=== PATIENT | female | born 1950 | race Caucasian/White ===

== ENCOUNTER 2016-07-15 16:49 | Inpatient (IN) | payer OTHER ==
[~2016-07-15] VITALS: Ht 152.4 cm; Wt 84.8 kg
[2016-07-15] MEDS ORDERED: ASPIRIN 81 MG TABLET CHEW ONE (17:24)
[2016-07-15] MEDS ORDERED: CARV3.122 PO (17:27)
[2016-07-15] MEDS ORDERED: ASPIRIN 81 MG TABLET CHEW PO ONE (17:30)
[2016-07-15] MEDS ORDERED: SODIUM CHLORIDE 0.9% 1,000ML IVBOLUS ONE (17:30)
[2016-07-15] MEDS ORDERED: SODIUM CHLORIDE FLUSH 10ML SYR IVF ONE (17:30)
[2016-07-15 17:32] LABS: HEMOGLOBIN 11.1 g/dL (11.7-16.4)
[2016-07-15 17:44] LABS: BLOOD UREA NITROGEN 39 mg/dL (7-18)
[2016-07-15 17:47] LABS: IS PT STATUS REG ER OR PRE ER? YES
[2016-07-15] MEDS ORDERED: FERR325T20 PO (18:47)
[2016-07-15] MEDS ORDERED: CARV6.2512 PO (18:47)
[2016-07-15] MEDS ORDERED: ROSU40TA PO (18:47)
[2016-07-15] MEDS ORDERED: LISI-167 PO (18:47)
[2016-07-15] MEDS ORDERED: TIOT18CA INH (18:47)
[2016-07-15] MEDS ORDERED: TRAM50TA2 PO (18:47)
[2016-07-15] MEDS ORDERED: MELO-184 PO (18:47)
[2016-07-15] MEDS ORDERED: FURO-92 PO (18:47)
[2016-07-15] MEDS ORDERED: BUDE10.2 INH (18:47)
[2016-07-15] MEDS ORDERED: POTA20PA8 PO (18:47)
[2016-07-15] MEDS ORDERED: GABA300C10 PO (18:47)
[2016-07-15] MEDS ORDERED: NS + 20MEQ KCL 1,000 ML IV SCH (20:01)
[2016-07-15] MEDS ORDERED: POLYETHYLENE GLYCOL 17 GM PACKET PO PRN (20:30)
[2016-07-15] MEDS ORDERED: LABETALOL 5MG/ML, 20ML IV PRN (20:30)
[2016-07-15] MEDS ORDERED: BISACODYL 10 MG SUPP PR PRN (20:30)
[2016-07-15] MEDS ORDERED: ACETAMINOPHEN 325 MG TABLET PO PRN (20:30)
[2016-07-15] MEDS ORDERED: ONDANSETRON ODT 4 MG PO PRN (20:30)
[2016-07-15] MEDS: TEMPLATE NON-FORMULARY MED. (Budesonide/Formoterol Fumarate (Symbicort 160-4.5 Mcg Inhaler INH SCH (21:00)
[2016-07-15] MEDS ORDERED: TEMPLATE NON-FORMULARY MED. (Rosuvastatin Calcium** (Crestor**) 40 MG) PO SCH (21:00)
[2016-07-15] MEDS: INSULIN ASPART 100 UNITS/ML, PEN SQ-INSULIN SCH (21:00)
[2016-07-15 21:36] VITALS: BP 129/74
[2016-07-15] MEDS: HEPARIN 5,000 UNITS/ML, 1ML SQ SCH ×2 (22:14→22:36)
[2016-07-15] MEDS: CARVEDILOL 6.25 MG TABLET PO SCH (22:15)
[2016-07-15] MEDS: GABAPENTIN 300 MG CAPSULE PO SCH (22:16)
[2016-07-15] MEDS: TRAZODONE 50MG TABLET PO PRN (22:22)
[2016-07-15 23:33] LABS: IS PT STATUS REG ER OR PRE ER? NO
[2016-07-16 01:35] VITALS: BP 157/89
[2016-07-16] MEDS: HEPARIN 5,000 UNITS/ML, 1ML SQ SCH ×3 (04:39→22:12)
[2016-07-16 05:54] LABS: HEMOGLOBIN 9.7 g/dL (11.7-16.4)
[2016-07-16 06:05] LABS: BLOOD UREA NITROGEN 30 mg/dL (7-18)
[2016-07-16 06:12] LABS: ASPARTATE AMINO TRANSFERASE 9 U/L (15-37)
[2016-07-16 06:13] LABS: IS PT STATUS REG ER OR PRE ER? NO
[2016-07-16] MEDS: INSULIN ASPART 100 UNITS/ML, PEN SQ-INSULIN SCH ×4 (07:00→21:00)
[2016-07-16 07:33] VITALS: BP 119/67
[2016-07-16] MEDS: LISINOPRIL 10 MG TABLET PO SCH (08:14)
[2016-07-16] MEDS: CARVEDILOL 6.25 MG TABLET PO SCH ×2 (08:14→22:12)
[2016-07-16] MEDS: GABAPENTIN 300 MG CAPSULE PO SCH ×3 (08:14→22:12)
[2016-07-16] MEDS: MELOXICAM 15 MG TABLET PO SCH (08:14)
[2016-07-16] MEDS: FERROUS SULFATE 325 MG TABLET PO SCH ×2 (08:15→17:26)
[2016-07-16] MEDS: TEMPLATE NON-FORMULARY MED. (Tiotropium Bromide** (Spiriva**) 18 MCG) INH SCH (09:00)
[2016-07-16] MEDS: TEMPLATE NON-FORMULARY MED. (Budesonide/Formoterol Fumarate (Symbicort 160-4.5 Mcg Inhaler INH SCH ×2 (09:00→21:00)
[2016-07-16 12:46] VITALS: BP 143/81
[2016-07-16] MEDS ORDERED: POTASSIUM CHLORIDE 20 MEQ TAB.ER.PRT PO ONE (17:00)
[2016-07-16 19:15] VITALS: BP 114/54
[2016-07-16] MEDS ORDERED: NS + 20MEQ KCL 1,000 ML IV SCH (20:01)
[2016-07-16] MEDS: ATORVASTATIN 80 MG TABLET PO SCH (22:12)
[2016-07-16] MEDS: TRAZODONE 50MG TABLET PO PRN (23:00)
[2016-07-17] MEDS ORDERED: SODIUM CHLORIDE 0.9% 1,000 ML IV SCH (00:01)
[2016-07-17 01:37] VITALS: BP 108/58
[2016-07-17] MEDS: HEPARIN 5,000 UNITS/ML, 1ML SQ SCH ×3 (05:51→21:26)
[2016-07-17] MEDS: INSULIN ASPART 100 UNITS/ML, PEN SQ-INSULIN SCH ×5 (07:37→21:00)
[2016-07-17] MEDS: FERROUS SULFATE 325 MG TABLET PO SCH ×3 (08:00→16:36)
[2016-07-17] MEDS ORDERED: D5%-0.45% NACL 1,000 ML IV SCH (08:00)
[2016-07-17 08:20] VITALS: BP 115/70
[2016-07-17] MEDS: GABAPENTIN 300 MG CAPSULE PO SCH ×5 (08:26→21:26)
[2016-07-17] MEDS: MELOXICAM 15 MG TABLET PO SCH ×2 (08:26→08:39)
[2016-07-17] MEDS: CARVEDILOL 6.25 MG TABLET PO SCH ×3 (08:32→21:26)
[2016-07-17] MEDS: LISINOPRIL 10 MG TABLET PO SCH (08:32)
[2016-07-17] MEDS: TEMPLATE NON-FORMULARY MED. (Tiotropium Bromide** (Spiriva**) 18 MCG) INH SCH (08:33)
[2016-07-17] MEDS: TEMPLATE NON-FORMULARY MED. (Budesonide/Formoterol Fumarate (Symbicort 160-4.5 Mcg Inhaler INH SCH ×2 (08:33→21:00)
[2016-07-17] MEDS ORDERED: POTASSIUM CHLORIDE 20 MEQ TAB.ER.PRT PO ONE (09:30)
[2016-07-17 10:36] LABS: BLOOD UREA NITROGEN 22 mg/dL (7-18)
[2016-07-17 10:37] LABS: TOTAL IRON BINDING CAPACITY 333 mcg/dL (250-450)
[2016-07-17 13:45] VITALS: BP 102/62
[2016-07-17] MEDS ORDERED: FENTANYL PF 100 MCG/2ML ONE (16:08)
[2016-07-17] MEDS ORDERED: NITROGLYCERIN 5 MG/ML, 10ML ONE (16:08)
[2016-07-17] MEDS ORDERED: MIDAZOLAM 1 MG/ML, 5ML ONE (16:08)
[2016-07-17] MEDS ORDERED: VERAPAMIL 2.5 MG/ML, 2ML ONE (16:08)
[2016-07-17] MEDS ORDERED: HEPARIN 1,000 UNITS/ML, 10ML ONE (16:09)
[2016-07-17] MEDS ORDERED: TICAGRELOR 90 MG TABLET ONE (16:09)
[2016-07-17] MEDS ORDERED: BIVALIRUDIN 250 MG ONE (16:09)
[2016-07-17] MEDS ORDERED: LIDOCAINE 2%, 20ML ONE (16:10)
[2016-07-17] MEDS ORDERED: DIPHENHYDRAMINE 50 MG/ML, 1ML ONE (16:41)
[2016-07-17] MEDS: SODIUM CHLORIDE 0.9% 1,000 ML IV SCH ×2 (16:42→23:09)
[2016-07-17] MEDS ORDERED: ACETAMINOPHEN 325 MG TABLET PO PRN (17:00)
[2016-07-17 20:30] VITALS: BP 124/80
[2016-07-17] MEDS: ATORVASTATIN 80 MG TABLET PO SCH (21:26)
[2016-07-17] MEDS: TRAZODONE 50MG TABLET PO PRN (23:09)
[2016-07-18 01:05] VITALS: BP 94/57
[2016-07-18 05:01] LABS: HEMOGLOBIN 8.6 g/dL (11.7-16.4)
[2016-07-18] MEDS: HEPARIN 5,000 UNITS/ML, 1ML SQ SCH ×3 (06:01→21:32)
[2016-07-18 06:22] VITALS: BP 132/79
[2016-07-18] MEDS: INSULIN ASPART 100 UNITS/ML, PEN SQ-INSULIN SCH ×4 (07:00→21:00)
[2016-07-18] MEDS: SODIUM CHLORIDE 0.9% 1,000 ML IV SCH ×3 (08:42→19:41)
[2016-07-18] MEDS: MELOXICAM 15 MG TABLET PO SCH (08:48)
[2016-07-18] MEDS: FERROUS SULFATE 325 MG TABLET PO SCH ×2 (08:49→16:45)
[2016-07-18] MEDS: GABAPENTIN 300 MG CAPSULE PO SCH ×3 (08:49→21:32)
[2016-07-18] MEDS: TEMPLATE NON-FORMULARY MED. (Budesonide/Formoterol Fumarate (Symbicort 160-4.5 Mcg Inhaler INH SCH ×2 (08:50→21:00)
[2016-07-18] MEDS: CARVEDILOL 6.25 MG TABLET PO SCH ×2 (08:50→21:33)
[2016-07-18] MEDS: TEMPLATE NON-FORMULARY MED. (Tiotropium Bromide** (Spiriva**) 18 MCG) INH SCH (08:51)
[2016-07-18 09:04] VITALS: BP 108/63
[2016-07-18] MEDS: LISINOPRIL 10 MG TABLET PO SCH (09:04)
[2016-07-18 13:02] VITALS: BP 132/76
[2016-07-18] MEDS: DOCUSATE 100 MG CAPSULE PO PRN (16:45)
[2016-07-18 19:26] VITALS: BP 135/72
[2016-07-18] MEDS: ATORVASTATIN 80 MG TABLET PO SCH (21:33)
[2016-07-18] MEDS: TRAZODONE 50MG TABLET PO PRN (23:14)
[2016-07-19 02:52] VITALS: BP 124/80
[2016-07-19 05:28] LABS: HEMOGLOBIN 9.3 g/dL (11.7-16.4)
[2016-07-19] MEDS: HEPARIN 5,000 UNITS/ML, 1ML SQ SCH ×3 (06:42→22:49)
[2016-07-19] MEDS: INSULIN ASPART 100 UNITS/ML, PEN SQ-INSULIN SCH ×4 (07:00→21:00)
[2016-07-19] MEDS: SODIUM CHLORIDE 0.9% 1,000 ML IV SCH ×2 (08:20→16:42)
[2016-07-19 08:30] VITALS: BP 125/76
[2016-07-19] MEDS: GABAPENTIN 300 MG CAPSULE PO SCH ×3 (08:33→22:49)
[2016-07-19] MEDS: MELOXICAM 15 MG TABLET PO SCH (08:33)
[2016-07-19] MEDS: CARVEDILOL 6.25 MG TABLET PO SCH ×2 (08:33→22:49)
[2016-07-19] MEDS: LISINOPRIL 10 MG TABLET PO SCH (08:36)
[2016-07-19] MEDS: FERROUS SULFATE 325 MG TABLET PO SCH ×2 (08:36→18:08)
[2016-07-19] MEDS: TEMPLATE NON-FORMULARY MED. (Tiotropium Bromide** (Spiriva**) 18 MCG) INH SCH (08:37)
[2016-07-19] MEDS: TEMPLATE NON-FORMULARY MED. (Budesonide/Formoterol Fumarate (Symbicort 160-4.5 Mcg Inhaler INH SCH ×2 (08:38→21:00)
[2016-07-19] MEDS: DOCUSATE 100 MG CAPSULE PO PRN (08:43)
[2016-07-19 13:42] VITALS: BP 138/70
[2016-07-19 20:30] VITALS: BP 126/60
[2016-07-19] MEDS: ATORVASTATIN 80 MG TABLET PO SCH (22:49)
[2016-07-20] MEDS: SODIUM CHLORIDE 0.9% 1,000 ML IV SCH ×4 (00:42→21:01)
[2016-07-20 00:44] VITALS: BP 113/53
[2016-07-20 06:55] VITALS: BP 142/69
[2016-07-20] MEDS: HEPARIN 5,000 UNITS/ML, 1ML SQ SCH ×3 (07:15→21:00)
[2016-07-20] MEDS: INSULIN ASPART 100 UNITS/ML, PEN SQ-INSULIN SCH ×4 (08:19→21:00)
[2016-07-20] MEDS: FERROUS SULFATE 325 MG TABLET PO SCH ×2 (08:25→17:19)
[2016-07-20] MEDS: GABAPENTIN 300 MG CAPSULE PO SCH ×3 (08:25→20:57)
[2016-07-20] MEDS: CARVEDILOL 6.25 MG TABLET PO SCH ×2 (08:25→20:57)
[2016-07-20] MEDS: MELOXICAM 15 MG TABLET PO SCH (08:25)
[2016-07-20] MEDS: LISINOPRIL 10 MG TABLET PO SCH (08:25)
[2016-07-20] MEDS: TEMPLATE NON-FORMULARY MED. (Tiotropium Bromide** (Spiriva**) 18 MCG) INH SCH (08:28)
[2016-07-20] MEDS: TEMPLATE NON-FORMULARY MED. (Budesonide/Formoterol Fumarate (Symbicort 160-4.5 Mcg Inhaler INH SCH ×2 (08:28→20:56)
[2016-07-20 10:45] LABS: OCCBLD OBC PASS
[2016-07-20 14:51] VITALS: BP 119/56
[2016-07-20 19:07] VITALS: BP 127/60
[2016-07-20] MEDS: ATORVASTATIN 80 MG TABLET PO SCH (20:57)
[2016-07-21 02:50] VITALS: BP 146/73
[2016-07-21] MEDS: HEPARIN 5,000 UNITS/ML, 1ML SQ SCH ×3 (06:08→22:30)
[2016-07-21 06:51] VITALS: BP 125/56
[2016-07-21] MEDS: INSULIN ASPART 100 UNITS/ML, PEN SQ-INSULIN SCH ×4 (07:00→21:00)
[2016-07-21] MEDS: FERROUS SULFATE 325 MG TABLET PO SCH ×2 (08:13→17:37)
[2016-07-21] MEDS: LISINOPRIL 10 MG TABLET PO SCH (08:14)
[2016-07-21] MEDS: GABAPENTIN 300 MG CAPSULE PO SCH ×3 (08:15→20:28)
[2016-07-21] MEDS: CARVEDILOL 6.25 MG TABLET PO SCH ×2 (08:15→20:25)
[2016-07-21] MEDS: MELOXICAM 15 MG TABLET PO SCH (08:16)
[2016-07-21] MEDS: TEMPLATE NON-FORMULARY MED. (Tiotropium Bromide** (Spiriva**) 18 MCG) INH SCH (08:17)
[2016-07-21] MEDS: TEMPLATE NON-FORMULARY MED. (Budesonide/Formoterol Fumarate (Symbicort 160-4.5 Mcg Inhaler INH SCH ×2 (08:18→20:29)
[2016-07-21] MEDS: SODIUM CHLORIDE 0.9% 1,000 ML IV SCH ×2 (08:20→16:42)
[2016-07-21] MEDS ORDERED: INSULIN ASPART 100 UNITS/ML, PEN SQ-INSULIN SCH (10:00)
[2016-07-21] MEDS: MUPIROCIN OINT 2%, 22GM TP SCH (10:00)
[2016-07-21] MEDS ORDERED: CHLORHEXIDINE MOUTHWASH 15 ML UDC MM PRN (10:00)
[2016-07-21 10:25] LABS: HEMOGLOBIN 10.2 g/dL (11.7-16.4)
[2016-07-21 10:32] LABS: ASPARTATE AMINO TRANSFERASE 11 U/L (15-37); BLOOD UREA NITROGEN 16 mg/dL (7-18)
[2016-07-21 14:58] VITALS: BP 121/60
[2016-07-21] MEDS: ATORVASTATIN 80 MG TABLET PO SCH (20:28)
[2016-07-21] MEDS: SODIUM CHLORIDE FLUSH 10ML SYR IVF SCH (20:29)
[2016-07-21 20:43] VITALS: BP 138/73
[2016-07-22] MEDS: SODIUM CHLORIDE 0.9% 1,000 ML IV SCH ×2 (00:42→08:42)
[2016-07-22] MEDS: MUPIROCIN OINT 2%, 22GM TP SCH ×3 (01:38→21:00)
[2016-07-22 02:18] VITALS: BP 146/72
[2016-07-22] MEDS: HEPARIN 5,000 UNITS/ML, 1ML SQ SCH (06:30)
[2016-07-22] MEDS: INSULIN ASPART 100 UNITS/ML, PEN SQ-INSULIN SCH ×2 (07:00→11:00)
[2016-07-22] MEDS ORDERED: CEFUROXIME 1.5 GM in SODIUM CHLORIDE 0.9% 50 ML IVPB PRN ×2 (07:30→12:30)
[2016-07-22] MEDS ORDERED: VANCOMYCIN 1,300 MG in SODIUM CHLORIDE 0.9% 250 ML IVPB PRN (07:30)
[2016-07-22 07:47] VITALS: BP 133/74
[2016-07-22] MEDS: SODIUM CHLORIDE FLUSH 10ML SYR IVF SCH ×3 (09:00→21:32)
[2016-07-22] MEDS: TEMPLATE NON-FORMULARY MED. (Tiotropium Bromide** (Spiriva**) 18 MCG) INH SCH (09:00)
[2016-07-22] MEDS: TEMPLATE NON-FORMULARY MED. (Budesonide/Formoterol Fumarate (Symbicort 160-4.5 Mcg Inhaler INH SCH ×2 (09:00→21:00)
[2016-07-22] MEDS: CARVEDILOL 6.25 MG TABLET PO SCH (09:17)
[2016-07-22] MEDS: MELOXICAM 15 MG TABLET PO SCH (09:17)
[2016-07-22] MEDS: FERROUS SULFATE 325 MG TABLET PO SCH ×2 (09:17→17:00)
[2016-07-22] MEDS: LISINOPRIL 10 MG TABLET PO SCH (09:17)
[2016-07-22] MEDS: GABAPENTIN 300 MG CAPSULE PO SCH ×3 (09:18→21:00)
[2016-07-22 11:00] VITALS: BP_SYST 150; BP_SYST 151; BP_DIAS 72; BP_DIAS 74
[2016-07-22] MEDS ORDERED: HEPARIN 1,000 UNITS/ML, 10ML IV ONE (12:30)
[2016-07-22] MEDS ORDERED: PAPAVERINE 30 MG/ML, 2ML IVPush ONE (12:30)
[2016-07-22] MEDS ORDERED: EPINEPHRINE 2 MG in SODIUM CHLORIDE 0.9% 248 ML IV SCH (12:30)
[2016-07-22] MEDS ORDERED: REGULAR INSULIN 62.5 UNITS in SODIUM CHLORIDE 0.9% 249.375 ML IV PRN ×2 (12:30→16:29)
[2016-07-22] MEDS ORDERED: POTASSIUM CHLORIDE 80 MEQ, SODIUM BICARBONATE 8.4% 10 MEQ, MAGNESIUM SULFATE 0.5 GM, LI... IV PRN (12:30)
[2016-07-22] MEDS ORDERED: ALBUMIN HUMAN 5% 500 ML IV ONE (12:30)
[2016-07-22] MEDS ORDERED: PHENYLEPHRINE 10 MG in SODIUM CHLORIDE 0.9% 249 ML IV PRN ×2 (12:30→16:29)
[2016-07-22] MEDS ORDERED: VANCOMYCIN 1,300 MG in SODIUM CHLORIDE 0.9% 250 ML IV PRN (12:30)
[2016-07-22] MEDS ORDERED: MANNITOL PMX 20% 500 ML IVPB PRN (12:30)
[2016-07-22] MEDS ORDERED: DEXMEDETOMIDINE 200 MCG in SODIUM CHLORIDE 0.9% 48 ML IV SCH (12:30)
[2016-07-22] MEDS ORDERED: MIDAZOLAM 10MG/2 ML ONE (12:36)
[2016-07-22] MEDS ORDERED: FENTANYL PF 1000 MCG/20ML ONE (12:36)
[2016-07-22] MEDS ORDERED: ROCURONIUM 10 MG/ML ONE (13:02)
[2016-07-22] MEDS ORDERED: PROPOFOL 10 MG/ML, 50ML ONE (13:02)
[2016-07-22] MEDS ORDERED: AMIODARONE 50 MG/ML, 3ML ONE (16:09)
[2016-07-22] MEDS ORDERED: PAPAVERINE 30 MG/ML, 2ML ONE (16:10)
[2016-07-22] MEDS ORDERED: AMINOCAPROIC ACID 250 MG/ML, 20ML ONE ×2 (16:10)
[2016-07-22] MEDS ORDERED: PROTAMINE SULFATE 10 MG/ML, 25ML ONE (16:10)
[2016-07-22] MEDS ORDERED: HEPARIN 1,000 UNITS/ML, 30ML ONE ×2 (16:11→16:52)
[2016-07-22] MEDS ORDERED: CALCIUM CHLORIDE 10%, 10ML SYR ONE ×2 (16:11→16:14)
[2016-07-22] MEDS ORDERED: VASOPRESSIN 20 UNIT/ML, 1ML ONE (16:15)
[2016-07-22] MEDS ORDERED: CLEVIDIPINE 50 ML IV PRN (16:29)
[2016-07-22] MEDS ORDERED: SODIUM CHLORIDE 0.9% 1,000 ML IV PRN (16:29)
[2016-07-22] MEDS ORDERED: NITROGLYCERIN/D5W PMX 250 ML IV PRN (16:29)
[2016-07-22] MEDS ORDERED: SODIUM CHLORIDE 0.9% 1,000 ML IV ONE (16:29)
[2016-07-22] MEDS ORDERED: DEXTROSE 50%, 50ML SYRINGE IVPush PRN (16:30)
[2016-07-22] MEDS ORDERED: MEPERIDINE/PF 25MG/0.5ML IVPush PRN (16:30)
[2016-07-22] MEDS ORDERED: BISACODYL 5 MG EC TABLET PO PRN (16:30)
[2016-07-22] MEDS ORDERED: LACTATED RINGERS 500 ML IVBOLUS PRN (16:30)
[2016-07-22] MEDS ORDERED: SODIUM BICARB 8.4%, 50ML SYRINGE IV PRN (16:30)
[2016-07-22] MEDS ORDERED: EPINEPHRINE 2 MG in SODIUM CHLORIDE 0.9% 248 ML IV PRN (16:30)
[2016-07-22] MEDS: KSCALE TO 4.5 IV SCH ×2 (16:30→22:30)
[2016-07-22] MEDS ORDERED: ACETAMINOPHEN 650 MG SUPP PR PRN (16:30)
[2016-07-22] MEDS ORDERED: PROCHLORPERAZINE 5 MG/ML, 2ML IVPush PRN (16:30)
[2016-07-22] MEDS ORDERED: MIDAZOLAM 1 MG/ML, 5ML IVPush PRN (16:30)
[2016-07-22] MEDS ORDERED: INSULIN ASPART 100 UNITS/ML, PEN SQ-INSULIN PRN (16:30)
[2016-07-22] MEDS ORDERED: GLUCAGON 1 MG IM PRN (16:30)
[2016-07-22] MEDS ORDERED: ACETAMINOPHEN 325 MG TABLET PO PRN (16:30)
[2016-07-22] MEDS ORDERED: ONDANSETRON 2MG/ML, 2ML IVPush PRN (16:30)
[2016-07-22] MEDS ORDERED: DEXTROSE 4 GM TAB.CHEW PO PRN (16:30)
[2016-07-22] MEDS ORDERED: BISACODYL 10 MG SUPP PR PRN (16:30)
[2016-07-22] MEDS ORDERED: ALBUMIN HUMAN 25% 50 ML ONE (16:50)
[2016-07-22] MEDS ORDERED: SODIUM BICARBONATE 1 MEQ/ML, 50ML VIAL ONE (16:51)
[2016-07-22] MEDS ORDERED: LIDOCAINE 2% 100MG/5ML SYRINGE ONE (16:51)
[2016-07-22 16:56] LABS: ABG COLLECTION SITE ARTERIAL LINE
[2016-07-22] MEDS ORDERED: DOBUTAMINE 250 MG in SODIUM CHLORIDE 0.9% 230 ML IV PRN (17:00)
[2016-07-22 17:07] LABS: HEMOGLOBIN 7.7 g/dL (11.7-16.4)
[2016-07-22] MEDS: MAGNESIUM SULFATE 1 GM in SODIUM CHLORIDE 0.9% 50 ML IVPB SCH (17:25)
[2016-07-22] MEDS: morphine SULFATE 10 MG/ML, 1ML IVPush PRN ×4 (19:20→23:13)
[2016-07-22] MEDS ORDERED: DEXMEDETOMIDINE 200 MCG in SODIUM CHLORIDE 0.9% 48 ML IV PRN (19:30)
[2016-07-22 20:58] VITALS: BP 128/61
[2016-07-22] MEDS: DOCUSATE 100 MG CAPSULE PO SCH (21:00)
[2016-07-22] MEDS: ATORVASTATIN 80 MG TABLET PO SCH (21:00)
[2016-07-22] MEDS: MUPIROCIN OINT 2%, 22GM NAS SCH (21:32)
[2016-07-22 22:17] LABS: HEMOGLOBIN 9.9 g/dL (11.7-16.4)
[2016-07-22] MEDS: CEFUROXIME 1.5 GM in SODIUM CHLORIDE 0.9% 50 ML IVPB SCH (23:07)
[2016-07-22] MEDS ORDERED: IPRATROPIUM 0.5 MG/2.5 ML INHA NPPB PRN (23:30)
[2016-07-22] MEDS ORDERED: POTASSIUM CHLORIDE PMX 100 ML IV ONE (23:30)
[2016-07-22] MEDS: OXYcodone IR 5MG TABLET PO PRN (23:33)
[2016-07-22] MEDS: VANCOMYCIN 1,200 MG in SODIUM CHLORIDE 0.9% 250 ML IVPB SCH (23:41)
[2016-07-23] MEDS: HYDROcodone/APAP 10/325 MG TABLET PO PRN ×4 (00:39→18:19)
[2016-07-23 03:59] LABS: ABG COLLECTION SITE ARTERIAL LINE
[2016-07-23 04:03] LABS: HEMOGLOBIN 9.6 g/dL (11.7-16.4)
[2016-07-23 04:11] LABS: BLOOD UREA NITROGEN 14 mg/dL (7-18)
[2016-07-23] MEDS: OXYcodone IR 5MG TABLET PO PRN ×4 (04:21→20:26)
[2016-07-23] MEDS: KSCALE TO 4.5 IV SCH (04:30)
[2016-07-23] MEDS: INSULIN ASPART 100 UNITS/ML, PEN SQ-INSULIN SCH ×5 (06:00→20:55)
[2016-07-23] MEDS ORDERED: INSULIN ASPART 100 UNITS/ML, PEN SQ-INSULIN SCH (06:00)
[2016-07-23] MEDS ORDERED: MAGNESIUM HYDROXIDE 8%, 30ML UDC PO PRN (08:00)
[2016-07-23] MEDS: FUROSEMIDE 20 MG/2 ML IV SCH ×2 (08:49→16:55)
[2016-07-23] MEDS: PANTOPRAZOLE 40 MG IV IVPush SCH (08:50)
[2016-07-23] MEDS: MELOXICAM 15 MG TABLET PO SCH (08:50)
[2016-07-23] MEDS: ASPIRIN 81 MG TABLET EC PO SCH (08:50)
[2016-07-23] MEDS: FERROUS SULFATE 325 MG TABLET PO SCH ×2 (08:50→16:55)
[2016-07-23] MEDS: DOCUSATE 100 MG CAPSULE PO SCH ×2 (08:50→20:26)
[2016-07-23] MEDS: METOPROLOL TARTRATE 25 MG TABLET PO/NG SCH ×2 (08:50→20:26)
[2016-07-23] MEDS: MUPIROCIN OINT 2%, 22GM NAS SCH ×2 (08:50→20:54)
[2016-07-23] MEDS: GABAPENTIN 300 MG CAPSULE PO SCH ×3 (08:50→20:26)
[2016-07-23] MEDS: POTASSIUM CHLORIDE 10 MEQ TABLET.ER PO SCH ×2 (08:54→16:55)
[2016-07-23] MEDS: MUPIROCIN OINT 2%, 22GM TP SCH ×2 (08:59→20:25)
[2016-07-23] MEDS: SODIUM CHLORIDE FLUSH 10ML SYR IVF SCH ×5 (09:00→20:54)
[2016-07-23] MEDS: TEMPLATE NON-FORMULARY MED. (Budesonide/Formoterol Fumarate (Symbicort 160-4.5 Mcg Inhaler INH SCH ×2 (09:00→20:54)
[2016-07-23] MEDS: TEMPLATE NON-FORMULARY MED. (Tiotropium Bromide** (Spiriva**) 18 MCG) INH SCH (09:00)
[2016-07-23 10:20] LABS: HEMOGLOBIN 10.3 g/dL (11.7-16.4)
[2016-07-23] MEDS: CEFUROXIME 1.5 GM in SODIUM CHLORIDE 0.9% 50 ML IVPB SCH (11:10)
[2016-07-23] MEDS: IPRATROPIUM 0.5 MG/2.5 ML INHA NPPB PRN (11:16)
[2016-07-23] MEDS: VANCOMYCIN 1,200 MG in SODIUM CHLORIDE 0.9% 250 ML IVPB SCH (12:26)
[2016-07-23] MEDS: CHLORHEXIDINE MOUTHWASH 15 ML UDC MM SCH (16:55)
[2016-07-23] MEDS: MAGNESIUM SULFATE 1 GM in SODIUM CHLORIDE 0.9% 50 ML IVPB SCH (18:19)
[2016-07-23] MEDS: ATORVASTATIN 80 MG TABLET PO SCH (20:26)
[2016-07-23 20:30] VITALS: BP 101/66
[2016-07-24] MEDS: OXYcodone IR 5MG TABLET PO PRN ×6 (00:57→21:52)
[2016-07-24 02:25] VITALS: BP 100/65
[2016-07-24 05:10] LABS: HEMOGLOBIN 9.7 g/dL (11.7-16.4)
[2016-07-24 05:17] LABS: BLOOD UREA NITROGEN 21 mg/dL (7-18)
[2016-07-24 06:54] VITALS: BP 113/72
[2016-07-24] MEDS: INSULIN ASPART 100 UNITS/ML, PEN SQ-INSULIN SCH ×4 (07:00→21:10)
[2016-07-24] MEDS ORDERED: ENOXAPARIN 40 MG/0.4 ML ONE (07:58)
[2016-07-24] MEDS: PANTOPRAZOLE 40 MG IV IVPush SCH (08:02)
[2016-07-24] MEDS: POTASSIUM CHLORIDE 10 MEQ TABLET.ER PO SCH ×2 (08:02→17:32)
[2016-07-24] MEDS: DOCUSATE 100 MG CAPSULE PO SCH ×2 (08:02→21:04)
[2016-07-24] MEDS: ASPIRIN 81 MG TABLET EC PO SCH (08:02)
[2016-07-24] MEDS: FERROUS SULFATE 325 MG TABLET PO SCH ×2 (08:02→17:32)
[2016-07-24] MEDS: CHLORHEXIDINE MOUTHWASH 15 ML UDC MM SCH ×2 (08:03→21:05)
[2016-07-24] MEDS: MELOXICAM 15 MG TABLET PO SCH (08:03)
[2016-07-24] MEDS: METOPROLOL TARTRATE 25 MG TABLET PO/NG SCH ×2 (08:03→21:04)
[2016-07-24] MEDS: SODIUM CHLORIDE FLUSH 10ML SYR IVF SCH ×6 (08:03→21:00)
[2016-07-24] MEDS: ENOXAPARIN 40 MG/0.4 ML SQ SCH (08:03)
[2016-07-24] MEDS: FUROSEMIDE 20 MG/2 ML IV SCH ×2 (08:03→17:32)
[2016-07-24] MEDS: GABAPENTIN 300 MG CAPSULE PO SCH ×3 (08:03→21:04)
[2016-07-24] MEDS: MUPIROCIN OINT 2%, 22GM TP SCH ×2 (08:05→21:00)
[2016-07-24] MEDS: MUPIROCIN OINT 2%, 22GM NAS SCH ×2 (08:06→21:05)
[2016-07-24] MEDS: TEMPLATE NON-FORMULARY MED. (Budesonide/Formoterol Fumarate (Symbicort 160-4.5 Mcg Inhaler INH SCH ×2 (08:12→21:00)
[2016-07-24] MEDS: TEMPLATE NON-FORMULARY MED. (Tiotropium Bromide** (Spiriva**) 18 MCG) INH SCH (08:13)
[2016-07-24] MEDS: HYDROcodone/APAP 10/325 MG TABLET PO PRN (12:56)
[2016-07-24 12:59] VITALS: BP 89/56
[2016-07-24] MEDS: MAGNESIUM SULFATE 1 GM in SODIUM CHLORIDE 0.9% 50 ML IVPB SCH (17:32)
[2016-07-24 19:49] VITALS: BP 101/65
[2016-07-24] MEDS: ATORVASTATIN 80 MG TABLET PO SCH (21:04)
[2016-07-25 01:34] VITALS: BP 120/77
[2016-07-25] MEDS: OXYcodone IR 5MG TABLET PO PRN ×3 (01:38→08:04)
[2016-07-25 05:04] LABS: HEMOGLOBIN 8.6 g/dL (11.7-16.4)
[2016-07-25 05:16] LABS: BLOOD UREA NITROGEN 28 mg/dL (7-18)
[2016-07-25] MEDS: INSULIN ASPART 100 UNITS/ML, PEN SQ-INSULIN SCH ×4 (07:00→22:17)
[2016-07-25 07:13] VITALS: BP 101/68
[2016-07-25] MEDS: FUROSEMIDE 20 MG/2 ML IV SCH ×2 (08:03→16:21)
[2016-07-25] MEDS: CHLORHEXIDINE MOUTHWASH 15 ML UDC MM SCH (08:03)
[2016-07-25] MEDS: MUPIROCIN OINT 2%, 22GM NAS SCH ×2 (08:03→22:23)
[2016-07-25] MEDS: ENOXAPARIN 40 MG/0.4 ML SQ SCH (08:03)
[2016-07-25] MEDS: CLOPIDOGREL 75 MG TABLET PO SCH (08:04)
[2016-07-25] MEDS: POTASSIUM CHLORIDE 10 MEQ TABLET.ER PO SCH ×2 (08:04→16:21)
[2016-07-25] MEDS: METOPROLOL TARTRATE 25 MG TABLET PO/NG SCH ×2 (08:04→22:15)
[2016-07-25] MEDS: ASPIRIN 81 MG TABLET EC PO SCH (08:04)
[2016-07-25] MEDS: DOCUSATE 100 MG CAPSULE PO SCH ×2 (08:04→22:23)
[2016-07-25] MEDS: FERROUS SULFATE 325 MG TABLET PO SCH ×2 (08:04→16:21)
[2016-07-25] MEDS: MELOXICAM 15 MG TABLET PO SCH (08:04)
[2016-07-25] MEDS: GABAPENTIN 300 MG CAPSULE PO SCH ×3 (08:04→22:23)
[2016-07-25] MEDS: TEMPLATE NON-FORMULARY MED. (Tiotropium Bromide** (Spiriva**) 18 MCG) INH SCH (08:05)
[2016-07-25] MEDS: PANTOPRAZOLE 40 MG IV IVPush SCH (08:05)
[2016-07-25] MEDS: SODIUM CHLORIDE FLUSH 10ML SYR IVF SCH ×6 (08:05→22:23)
[2016-07-25] MEDS: TEMPLATE NON-FORMULARY MED. (Budesonide/Formoterol Fumarate (Symbicort 160-4.5 Mcg Inhaler INH SCH ×2 (08:05→22:22)
[2016-07-25] MEDS: MUPIROCIN OINT 2%, 22GM TP SCH ×2 (08:06→22:22)
[2016-07-25] MEDS: IPRATROPIUM 0.5 MG/2.5 ML INHA NPPB PRN ×2 (11:51→16:22)
[2016-07-25 13:10] VITALS: BP 89/56
[2016-07-25] MEDS: HYDROcodone/APAP 10/325 MG TABLET PO PRN ×3 (13:19→22:24)
[2016-07-25 18:57] VITALS: BP 106/70
[2016-07-25 22:15] VITALS: BP 95/65
[2016-07-25] MEDS: ATORVASTATIN 80 MG TABLET PO SCH (22:23)
[2016-07-26 02:34] VITALS: BP 109/74
[2016-07-26] MEDS: HYDROcodone/APAP 10/325 MG TABLET PO PRN ×4 (03:52→17:58)
[2016-07-26 04:10] LABS: BLOOD UREA NITROGEN 24 mg/dL (7-18)
[2016-07-26] MEDS: INSULIN ASPART 100 UNITS/ML, PEN SQ-INSULIN SCH ×4 (07:00→20:46)
[2016-07-26 07:52] VITALS: BP 101/64
[2016-07-26] MEDS ORDERED: METO25TA35 PO/NG (08:34)
[2016-07-26] MEDS ORDERED: CLOP75TA PO (08:34)
[2016-07-26] MEDS ORDERED: FURO10VI37 IV (08:34)
[2016-07-26] MEDS ORDERED: ASPI-621 PO (08:34)
[2016-07-26] MEDS ORDERED: OXYC5TAB3 PO (08:34)
[2016-07-26] MEDS ORDERED: POTA10TA5 PO (08:34)
[2016-07-26] MEDS: SODIUM CHLORIDE FLUSH 10ML SYR IVF SCH ×6 (09:00→20:52)
[2016-07-26] MEDS: MUPIROCIN OINT 2%, 22GM NAS SCH ×2 (09:00→20:52)
[2016-07-26] MEDS ORDERED: DIGOXIN 0.25 MG/ML, 2ML IVPush ONE (09:00)
[2016-07-26] MEDS ORDERED: DILTIAZEM 125 MG in SODIUM CHLORIDE 0.9% 100 ML IV PRN (09:00)
[2016-07-26 10:54] VITALS: BP 137/75
[2016-07-26] MEDS: PANTOPRAZOLE 40 MG IV IVPush SCH (10:55)
[2016-07-26] MEDS: POTASSIUM CHLORIDE 10 MEQ TABLET.ER PO SCH ×2 (10:56→17:58)
[2016-07-26] MEDS: ASPIRIN 81 MG TABLET EC PO SCH (10:56)
[2016-07-26] MEDS: CLOPIDOGREL 75 MG TABLET PO SCH (10:56)
[2016-07-26] MEDS: MUPIROCIN OINT 2%, 22GM TP SCH ×2 (10:56→20:46)
[2016-07-26] MEDS: GABAPENTIN 300 MG CAPSULE PO SCH ×3 (10:56→20:50)
[2016-07-26] MEDS: FERROUS SULFATE 325 MG TABLET PO SCH ×2 (10:56→17:58)
[2016-07-26] MEDS: MELOXICAM 15 MG TABLET PO SCH (10:56)
[2016-07-26] MEDS: DOCUSATE 100 MG CAPSULE PO SCH ×2 (10:56→20:49)
[2016-07-26] MEDS: ENOXAPARIN 40 MG/0.4 ML SQ SCH (10:57)
[2016-07-26] MEDS: TEMPLATE NON-FORMULARY MED. (Tiotropium Bromide** (Spiriva**) 18 MCG) INH SCH (11:09)
[2016-07-26] MEDS: TEMPLATE NON-FORMULARY MED. (Budesonide/Formoterol Fumarate (Symbicort 160-4.5 Mcg Inhaler INH SCH ×2 (11:09→20:51)
[2016-07-26] MEDS: FUROSEMIDE 20 MG/2 ML IV SCH ×2 (12:56→17:57)
[2016-07-26] MEDS: METOPROLOL TARTRATE 25 MG TABLET PO/NG SCH ×2 (15:10→20:49)
[2016-07-26 15:11] VITALS: BP 100/68
[2016-07-26] MEDS: DILTIAZEM 30 MG TABLET PO SCH ×2 (17:58→20:47)
[2016-07-26 19:56] VITALS: BP 124/74
[2016-07-26 20:25] VITALS: BP 122/82
[2016-07-26] MEDS: ATORVASTATIN 80 MG TABLET PO SCH (20:49)
[2016-07-27] MEDS: HYDROcodone/APAP 10/325 MG TABLET PO PRN ×4 (00:08→15:05)
[2016-07-27 00:35] VITALS: BP 110/64
[2016-07-27 03:39] LABS: HEMOGLOBIN 8.9 g/dL (11.7-16.4)
[2016-07-27 03:50] LABS: BLOOD UREA NITROGEN 20 mg/dL (7-18)
[2016-07-27] MEDS: DILTIAZEM 30 MG TABLET PO SCH ×4 (06:05→21:00)
[2016-07-27 06:07] VITALS: BP 143/77
[2016-07-27] MEDS: INSULIN ASPART 100 UNITS/ML, PEN SQ-INSULIN SCH ×4 (07:00→21:00)
[2016-07-27 08:00] VITALS: BP 133/79
[2016-07-27] MEDS: TEMPLATE NON-FORMULARY MED. (Tiotropium Bromide** (Spiriva**) 18 MCG) INH SCH (09:00)
[2016-07-27] MEDS: TEMPLATE NON-FORMULARY MED. (Budesonide/Formoterol Fumarate (Symbicort 160-4.5 Mcg Inhaler INH SCH ×2 (09:00→21:00)
[2016-07-27] MEDS: ENOXAPARIN 40 MG/0.4 ML SQ SCH (09:20)
[2016-07-27] MEDS: MUPIROCIN OINT 2%, 22GM NAS SCH (09:21)
[2016-07-27] MEDS: ASPIRIN 81 MG TABLET EC PO SCH (09:22)
[2016-07-27] MEDS: FERROUS SULFATE 325 MG TABLET PO SCH ×2 (09:23→17:14)
[2016-07-27] MEDS: PANTOPROZOLE 40MG TABLET PO SCH (09:23)
[2016-07-27] MEDS: CLOPIDOGREL 75 MG TABLET PO SCH (09:23)
[2016-07-27] MEDS: DOCUSATE 100 MG CAPSULE PO SCH ×2 (09:24→21:01)
[2016-07-27] MEDS: GABAPENTIN 300 MG CAPSULE PO SCH ×3 (09:24→21:01)
[2016-07-27] MEDS: MELOXICAM 15 MG TABLET PO SCH (09:24)
[2016-07-27] MEDS: METOPROLOL TARTRATE 25 MG TABLET PO/NG SCH ×2 (09:25→21:01)
[2016-07-27] MEDS: POTASSIUM CHLORIDE 10 MEQ TABLET.ER PO SCH ×2 (09:25→17:14)
[2016-07-27] MEDS: FUROSEMIDE 20 MG/2 ML IV SCH ×2 (09:26→17:14)
[2016-07-27] MEDS: SODIUM CHLORIDE FLUSH 10ML SYR IVF SCH ×6 (09:36→21:02)
[2016-07-27] MEDS: MUPIROCIN OINT 2%, 22GM TP SCH ×2 (10:28→21:09)
[2016-07-27] MEDS ORDERED: MAGN400O4 PO (13:49)
[2016-07-27] MEDS ORDERED: ACET-1757 PO (13:50)
[2016-07-27] MEDS ORDERED: HYDR-3144 PO (13:50)
[2016-07-27] MEDS ORDERED: ALPR0.254 PO (13:51)
[2016-07-27] MEDS ORDERED: BISA10SU2 PR (13:52)
[2016-07-27] MEDS ORDERED: BISA5TAB5 PO (13:52)
[2016-07-27] MEDS ORDERED: PANT40TA5 PO (13:54)
[2016-07-27] MEDS ORDERED: DOCU100C8 PO (13:55)
[2016-07-27] MEDS ORDERED: DILT30TA27 PO (13:55)
[2016-07-27] MEDS ORDERED: FURO20TA3 PO (13:56)
[2016-07-27] MEDS ORDERED: FERR325T20 PO (13:56)
[2016-07-27] MEDS ORDERED: TRAZ50TA18 PO (14:02)
[2016-07-27] MEDS ORDERED: PROC5TAB PO (14:02)
[2016-07-27] MEDS ORDERED: TRAM50TA2 PO (14:03)
[2016-07-27] MEDS ORDERED: INSU100C5 SQ-INSULIN (14:21)
[2016-07-27] MEDS ORDERED: ATOR80TA75 PO (14:24)
[2016-07-27] MEDS ORDERED: ACET650S12 PR (14:35)
[2016-07-27] MEDS ORDERED: DEXT50DI3 IV (14:36)
[2016-07-27] MEDS ORDERED: IPRA0.2S35 INH (14:39)
[2016-07-27] MEDS ORDERED: GLUC1VIA4 IM (14:39)
[2016-07-27 19:30] VITALS: BP 125/77
[2016-07-27] MEDS: ATORVASTATIN 80 MG TABLET PO SCH (21:01)
[2016-07-28 00:34] VITALS: BP 116/74
[2016-07-28] MEDS: HYDROcodone/APAP 10/325 MG TABLET PO PRN ×4 (01:52→15:45)
[2016-07-28] MEDS: DILTIAZEM 30 MG TABLET PO SCH ×4 (05:54→20:22)
[2016-07-28 05:58] VITALS: BP 120/78
[2016-07-28 06:22] LABS: BLOOD UREA NITROGEN 19 mg/dL (7-18)
[2016-07-28] MEDS: INSULIN ASPART 100 UNITS/ML, PEN SQ-INSULIN SCH ×4 (07:00→20:29)
[2016-07-28] MEDS: PANTOPROZOLE 40MG TABLET PO SCH (08:34)
[2016-07-28] MEDS: FUROSEMIDE 20 MG/2 ML IV SCH ×2 (08:34→18:18)
[2016-07-28] MEDS: MUPIROCIN OINT 2%, 22GM TP SCH ×2 (08:34→20:23)
[2016-07-28] MEDS: ENOXAPARIN 40 MG/0.4 ML SQ SCH (09:00)
[2016-07-28] MEDS: SODIUM CHLORIDE FLUSH 10ML SYR IVF SCH ×6 (09:00→20:21)
[2016-07-28 09:06] VITALS: BP 114/70
[2016-07-28] MEDS: FERROUS SULFATE 325 MG TABLET PO SCH ×2 (09:56→18:18)
[2016-07-28] MEDS: GABAPENTIN 300 MG CAPSULE PO SCH ×3 (09:56→20:22)
[2016-07-28] MEDS: DOCUSATE 100 MG CAPSULE PO SCH ×2 (09:56→20:22)
[2016-07-28] MEDS: ASPIRIN 81 MG TABLET EC PO SCH (09:57)
[2016-07-28] MEDS: POTASSIUM CHLORIDE 10 MEQ TABLET.ER PO SCH ×2 (09:57→18:18)
[2016-07-28] MEDS: TEMPLATE NON-FORMULARY MED. (Tiotropium Bromide** (Spiriva**) 18 MCG) INH SCH (09:57)
[2016-07-28] MEDS: MELOXICAM 15 MG TABLET PO SCH (09:57)
[2016-07-28] MEDS: TEMPLATE NON-FORMULARY MED. (Budesonide/Formoterol Fumarate (Symbicort 160-4.5 Mcg Inhaler INH SCH ×2 (09:57→20:22)
[2016-07-28] MEDS: METOPROLOL TARTRATE 25 MG TABLET PO/NG SCH ×2 (09:57→20:22)
[2016-07-28] MEDS: CLOPIDOGREL 75 MG TABLET PO SCH (09:57)
[2016-07-28 15:49] VITALS: BP 115/62
[2016-07-28 19:14] VITALS: BP 138/80
[2016-07-28] MEDS: ATORVASTATIN 80 MG TABLET PO SCH (20:22)
[2016-07-29 02:06] VITALS: BP 113/73
[2016-07-29 05:30] LABS: BLOOD UREA NITROGEN 20 mg/dL (7-18)
[2016-07-29] MEDS: DILTIAZEM 30 MG TABLET PO SCH (06:10)
[2016-07-29 06:12] VITALS: BP 118/76
[2016-07-29 08:00] VITALS: BP 111/69
[2016-07-29] MEDS: FERROUS SULFATE 325 MG TABLET PO SCH (08:03)
[2016-07-29] MEDS: CLOPIDOGREL 75 MG TABLET PO SCH (08:03)
[2016-07-29] MEDS: MELOXICAM 15 MG TABLET PO SCH (08:03)
[2016-07-29] MEDS: ENOXAPARIN 40 MG/0.4 ML SQ SCH (08:04)
[2016-07-29] MEDS: ASPIRIN 81 MG TABLET EC PO SCH (08:04)
[2016-07-29] MEDS: PANTOPROZOLE 40MG TABLET PO SCH (08:04)
[2016-07-29] MEDS: FUROSEMIDE 20 MG/2 ML IV SCH (08:04)
[2016-07-29] MEDS: METOPROLOL TARTRATE 25 MG TABLET PO/NG SCH (08:04)
[2016-07-29] MEDS: GABAPENTIN 300 MG CAPSULE PO SCH (08:04)
[2016-07-29] MEDS: POTASSIUM CHLORIDE 10 MEQ TABLET.ER PO SCH (08:04)
[2016-07-29] MEDS: TEMPLATE NON-FORMULARY MED. (Budesonide/Formoterol Fumarate (Symbicort 160-4.5 Mcg Inhaler INH SCH (08:45)
[2016-07-29] MEDS: INSULIN ASPART 100 UNITS/ML, PEN SQ-INSULIN SCH ×2 (08:45→12:59)
[2016-07-29] MEDS: TEMPLATE NON-FORMULARY MED. (Tiotropium Bromide** (Spiriva**) 18 MCG) INH SCH (08:46)
[2016-07-29] MEDS: SODIUM CHLORIDE FLUSH 10ML SYR IVF SCH ×3 (08:47)
[2016-07-29] MEDS: MUPIROCIN OINT 2%, 22GM TP SCH (08:47)
[2016-07-29] MEDS: DOCUSATE 100 MG CAPSULE PO SCH (09:00)
[2016-07-29] MEDS ORDERED: DABIGATRAN 150 MG CAPSULE PO SCH (09:00)
[2016-07-29] MEDS ORDERED: METOPROLOL TARTRATE 25 MG TABLET PO SCH (10:00)
[2016-07-29] MEDS: HYDROcodone/APAP 10/325 MG TABLET PO PRN (12:59)
[2016-07-29] MEDS ORDERED: DEXT4TAB PO (13:11)
[2016-07-29] MEDS ORDERED: ONDA4TAB10 PO (13:16)
[2016-07-29] MEDS ORDERED: METOPROLOL TARTRATE 25 MG TABLET PO/NG SCH (16:00)
[2016-07-29] MEDS ORDERED: METOPROLOL TARTRATE 50 MG TABLET PO SCH (18:00)
== END 2016-07-29 15:46 | DRG 233 ==
LOC: ED 19:22 → EDIP 19:47 → 5SO 21:31 → CSU 07-22 13:43 → 5SO 07-23 14:45
PROVIDERS: ADMIT Internal Medicine; ATTEND Internal Medicine
PROC: 021109W Bypass Coronary Artery, Two Arteries from Aorta with Autologous Venous Tissue, Open Approach (ICD-10-PCS; 2016-07-15)
PROC: 02100Z9 Bypass Coronary Artery, One Artery from Left Internal Mammary, Open Approach (ICD-10-PCS; 2016-07-15)
PROC: 06BQ4ZZ Excision of Left Saphenous Vein, Percutaneous Endoscopic Approach (ICD-10-PCS; 2016-07-15)
PROC: 5A1221Z Performance of Cardiac Output, Continuous (ICD-10-PCS; 2016-07-15)
PROC: B24BZZ4 Ultrasonography of Heart with Aorta, Transesophageal (ICD-10-PCS; 2016-07-15)
PROC: 4A023N7 Measurement of Cardiac Sampling and Pressure, Left Heart, Percutaneous Approach (ICD-10-PCS; principal; 2016-07-17)
PROC: B2111ZZ Fluoroscopy of Multiple Coronary Arteries using Low Osmolar Contrast (ICD-10-PCS; 2016-07-17)
PROC: B2151ZZ Fluoroscopy of Left Heart using Low Osmolar Contrast (ICD-10-PCS; 2016-07-17)
PROC: 30233N1 Transfusion of Nonautologous Red Blood Cells into Peripheral Vein, Percutaneous Approach (ICD-10-PCS; 2016-07-22)
DX: I21.4 Non-ST elevation (NSTEMI) myocardial infarction (principal); I50.41 Acute combined systolic (congestive) and diastolic (congestive) heart failure; J96.00 Acute respiratory failure, unspecified whether with hypoxia or hypercapnia; N17.9 Acute kidney failure, unspecified; I42.9 Cardiomyopathy, unspecified; I47.1 Supraventricular tachycardia; Z99.11 Dependence on respirator [ventilator] status; I11.0 Hypertensive heart disease with heart failure; E87.6 Hypokalemia; I25.2 Old myocardial infarction; J45.909 Unspecified asthma, uncomplicated; E11.9 Type 2 diabetes mellitus without complications; M19.90 Unspecified osteoarthritis, unspecified site; D50.9 Iron deficiency anemia, unspecified; D53.9 Nutritional anemia, unspecified; E66.9 Obesity, unspecified; E78.00 Pure hypercholesterolemia, unspecified; E78.5 Hyperlipidemia, unspecified; I25.119 Atherosclerotic heart disease of native coronary artery with unspecified angina pectoris; I34.0 Nonrheumatic mitral (valve) insufficiency; I35.0 Nonrheumatic aortic (valve) stenosis; I48.91 Unspecified atrial fibrillation; J44.9 Chronic obstructive pulmonary disease, unspecified; Z96.659 Presence of unspecified artificial knee joint; I73.9 Peripheral vascular disease, unspecified; Z80.8 Family history of malignant neoplasm of other organs or systems; Z82.49 Family history of ischemic heart disease and other diseases of the circulatory system; Z87.891 Personal history of nicotine dependence; Z90.710 Acquired absence of both cervix and uterus; Z90.89 Acquired absence of other organs; Z68.36 Body mass index [BMI] 36.0-36.9, adult
CPT/HCPCS: 36415; 36600; 71010; 71020; 80048; 80053; 81001; 81003; 82040; 82272; 82330; 82800; 82803; 82810; 82947; 82962; 83036; 83540; 83550; 83735; 84132; 84295; 84439; 84443; 84484; 85014; 85018; 85025; 85049; 85347; 85610; 85730; 86850; 86900; 86923; 87081; 93005; 93306; 93312; 93321; 93325; 93458; 93970; 94002; 94003; 94640; 96360; C1894; J0583; J0697; J1644; J1650; J1815; J2250; J2704; J2720; J3010; J3370; J3475; J3480; J3490; J7644; P9045; P9047; C1751; C9113; C9248; J0171; J0282; J1160; J1200; J1940; J2270; J2370; J2440; J7030; J7050; P9016; Q9967

== ENCOUNTER 2016-10-01 16:18 | Inpatient (IN) | payer OTHER ==
[~2016-10-01] VITALS: Ht 152.4 cm; Wt 78.5 kg
[~2016-10-01 16:18] MED LIST: ACET-1757 PO; ACET650S12 PR; ALPR0.254 PO; ASPI-621 PO; ATOR80TA75 PO; BISA10SU2 PR; BISA5TAB5 PO; BUDE10.2 INH; CARV3.122 PO; CARV6.2512 PO; CLOP75TA PO; DEXT4TAB PO; DEXT50DI3 IV; DILT30TA27 PO; DOCU100C8 PO; FERR325T20 PO; FURO-92 PO; FURO10VI37 IV; FURO20TA3 PO; GABA300C10 PO; GLUC1VIA4 IM; HYDR-3144 PO; INSU100C5 SQ-INSULIN; IPRA0.2S35 INH; LISI-167 PO; MAGN400O4 PO; MELO-184 PO; METO25TA35 PO/NG; ONDA4TAB10 PO; OXYC5TAB3 PO; PANT40TA5 PO; POTA10TA5 PO; POTA20PA8 PO; PROC5TAB PO; ROSU40TA PO; TIOT18CA INH; TRAM50TA2 PO; TRAZ50TA18 PO
[2016-10-01] MEDS ORDERED: ASPIRIN 81 MG TABLET CHEW PO ONE (17:00)
[2016-10-01] MEDS ORDERED: SODIUM CHLORIDE 0.9% 1,000ML IVBOLUS ONE ×2 (17:00→18:30)
[2016-10-01] MEDS ORDERED: ONDANSETRON 2MG/ML, 2ML IVPush ONE (17:00)
[2016-10-01] MEDS ORDERED: SODIUM CHLORIDE FLUSH 10ML SYR IVF ONE (17:00)
[2016-10-01] MEDS ORDERED: ONDANSETRON 2MG/ML, 2ML ONE (17:13)
[2016-10-01 17:28] LABS: ASPARTATE AMINO TRANSFERASE 31 U/L (15-37); BLOOD UREA NITROGEN 82 mg/dL (7-18)
[2016-10-01 17:45] LABS: IS PT STATUS REG ER OR PRE ER? YES
[2016-10-01] MEDS ORDERED: DEXTROSE 50%, 50ML VIAL ONE ×2 (17:48→20:50)
[2016-10-01] MEDS ORDERED: DEXTROSE 50%, 50ML SYRINGE IVPush ONE ×2 (18:00→21:30)
[2016-10-01] MEDS ORDERED: SODIUM CHLORIDE 0.9% 1,000 ML IV ONE (19:42)
[2016-10-01] MEDS: HEPARIN 5,000 UNITS/ML, 1ML SQ SCH (20:00)
[2016-10-01] MEDS ORDERED: SODIUM CHLORIDE FLUSH 10ML SYR IVF PRN (20:00)
[2016-10-01] MEDS ORDERED: SODIUM CHLORIDE 0.9%, 500ML IVBOLUS ONE (20:00)
[2016-10-01 21:25] LABS: IS PT STATUS REG ER OR PRE ER? YES
[2016-10-01 21:57] VITALS: BP 152/76
[2016-10-02] MEDS: LACTATED RINGERS 1,000 ML IV SCH ×3 (00:52→16:00)
[2016-10-02 01:32] VITALS: BP 134/69
[2016-10-02 01:51] LABS: BLOOD UREA NITROGEN 81 mg/dL (7-18)
[2016-10-02 01:52] LABS: ASPARTATE AMINO TRANSFERASE 28 U/L (15-37)
[2016-10-02 01:57] LABS: IS PT STATUS REG ER OR PRE ER? NO
[2016-10-02] MEDS: HEPARIN 5,000 UNITS/ML, 1ML SQ SCH ×3 (03:52→22:00)
[2016-10-02 07:29] LABS: IS PT STATUS REG ER OR PRE ER? NO
[2016-10-02 08:00] VITALS: BP 147/74
[2016-10-02] MEDS: BISACODYL 5 MG EC TABLET PO SCH ×2 (09:00→09:33)
[2016-10-02] MEDS: Budesonide/Formoterol Fumarate (Symbicort 160-4.5 Mcg Inhaler INH SCH ×2 (09:00→21:00)
[2016-10-02] MEDS: CLOPIDOGREL 75 MG TABLET PO SCH (09:33)
[2016-10-02] MEDS: ASPIRIN 81 MG TABLET EC PO SCH (09:33)
[2016-10-02] MEDS: DOCUSATE 100 MG CAPSULE PO SCH ×2 (09:33→22:30)
[2016-10-02] MEDS: FERROUS SULFATE 325 MG TABLET PO SCH ×2 (09:33→17:33)
[2016-10-02] MEDS: PANTOPROZOLE 40MG TABLET PO SCH (09:33)
[2016-10-02] MEDS: ONDANSETRON ODT 4 MG PO PRN (09:44)
[2016-10-02 10:35] LABS: PATH.CAST-FLAG NOT PRESENT; SPERM-FLAG NOT PRESENT; XTAL-FLAG NOT PRESENT; YLC-FLAG NOT PRESENT
[2016-10-02 14:33] VITALS: BP 144/76
[2016-10-02 19:18] VITALS: BP 146/79
[2016-10-02] MEDS: ATORVASTATIN 80 MG TABLET PO SCH (21:00)
[2016-10-02] MEDS: TRAZODONE 50MG TABLET PO SCH (22:30)
[2016-10-03 01:14] VITALS: BP 12/68
[2016-10-03] MEDS: LACTATED RINGERS 1,000 ML IV SCH ×2 (02:47→11:00)
[2016-10-03 05:12] LABS: BLOOD UREA NITROGEN 82 mg/dL (7-18)
[2016-10-03] MEDS: HEPARIN 5,000 UNITS/ML, 1ML SQ SCH (05:45)
[2016-10-03 08:00] VITALS: BP 135/77
[2016-10-03] MEDS: PANTOPROZOLE 40MG TABLET PO SCH (08:26)
[2016-10-03] MEDS: CLOPIDOGREL 75 MG TABLET PO SCH (08:26)
[2016-10-03] MEDS: DOCUSATE 100 MG CAPSULE PO SCH ×2 (08:26→21:21)
[2016-10-03] MEDS: FERROUS SULFATE 325 MG TABLET PO SCH ×2 (08:26→16:21)
[2016-10-03] MEDS: ASPIRIN 81 MG TABLET EC PO SCH (08:26)
[2016-10-03] MEDS: Budesonide/Formoterol Fumarate (Symbicort 160-4.5 Mcg Inhaler INH SCH ×2 (08:27→21:00)
[2016-10-03] MEDS: BISACODYL 5 MG EC TABLET PO SCH (08:27)
[2016-10-03] MEDS: SODIUM BICARBONATE 650 MG TABLET PO SCH ×2 (11:52→21:20)
[2016-10-03 12:39] VITALS: BP 135/78
[2016-10-03 18:28] VITALS: BP 158/93
[2016-10-03] MEDS: ATORVASTATIN 80 MG TABLET PO SCH (21:21)
[2016-10-03] MEDS: TRAZODONE 50MG TABLET PO SCH (21:21)
[2016-10-04 01:54] VITALS: BP 127/73
[2016-10-04 06:03] LABS: BLOOD UREA NITROGEN 82 mg/dL (7-18)
[2016-10-04 07:37] VITALS: BP 140/61
[2016-10-04] MEDS: FERROUS SULFATE 325 MG TABLET PO SCH ×2 (08:22→15:58)
[2016-10-04] MEDS: DOCUSATE 100 MG CAPSULE PO SCH ×2 (08:22→20:17)
[2016-10-04] MEDS: CLOPIDOGREL 75 MG TABLET PO SCH (08:22)
[2016-10-04] MEDS: ASPIRIN 81 MG TABLET EC PO SCH (08:22)
[2016-10-04] MEDS: PANTOPROZOLE 40MG TABLET PO SCH (08:22)
[2016-10-04] MEDS: SODIUM BICARBONATE 650 MG TABLET PO SCH ×2 (08:23→20:18)
[2016-10-04] MEDS: Budesonide/Formoterol Fumarate (Symbicort 160-4.5 Mcg Inhaler INH SCH ×2 (08:25→21:00)
[2016-10-04] MEDS: BISACODYL 5 MG EC TABLET PO SCH (08:25)
[2016-10-04] MEDS: ONDANSETRON ODT 4 MG PO PRN ×2 (09:23→15:58)
[2016-10-04] MEDS ORDERED: SODIUM CHLORIDE NASAL SPRAY 45ML BOTTLE NAS PRN (13:30)
[2016-10-04 14:41] VITALS: BP 146/77
[2016-10-04] MEDS ORDERED: NALOXONE 1 MG/ML, 2ML ONE (15:13)
[2016-10-04] MEDS ORDERED: MIDAZOLAM 1 MG/ML, 5ML ONE (15:13)
[2016-10-04] MEDS ORDERED: FENTANYL PF 100 MCG/2ML ONE (15:13)
[2016-10-04] MEDS ORDERED: FLUMAZENIL 0.1 MG/1 ML, 5ML ONE (15:13)
[2016-10-04] MEDS: MIRTAZAPINE 15 MG TABLET PO SCH (20:17)
[2016-10-04] MEDS: ATORVASTATIN 80 MG TABLET PO SCH (20:18)
[2016-10-04] MEDS: TRAZODONE 50MG TABLET PO SCH (20:18)
[2016-10-04] MEDS: ACETAMINOPHEN 325 MG TABLET PO PRN (21:01)
[2016-10-04 21:23] VITALS: BP 126/77
[2016-10-05 03:57] VITALS: BP 130/80
[2016-10-05 08:00] VITALS: BP 137/80
[2016-10-05] MEDS: SODIUM BICARBONATE 650 MG TABLET PO SCH ×2 (09:00→20:46)
[2016-10-05 09:02] LABS: BLOOD UREA NITROGEN 87 mg/dL (7-18)
[2016-10-05] MEDS: BISACODYL 5 MG EC TABLET PO SCH (09:40)
[2016-10-05] MEDS: DOCUSATE 100 MG CAPSULE PO SCH ×2 (09:40→20:46)
[2016-10-05] MEDS: FERROUS SULFATE 325 MG TABLET PO SCH ×3 (09:40→17:10)
[2016-10-05] MEDS: PANTOPROZOLE 40MG TABLET PO SCH (09:40)
[2016-10-05] MEDS: Budesonide/Formoterol Fumarate (Symbicort 160-4.5 Mcg Inhaler INH SCH ×2 (09:41→20:46)
[2016-10-05 13:36] VITALS: BP 153/75
[2016-10-05] MEDS: ONDANSETRON ODT 4 MG PO PRN (17:10)
[2016-10-05 19:52] VITALS: BP 156/79
[2016-10-05] MEDS: TRAZODONE 50MG TABLET PO SCH (20:46)
[2016-10-05] MEDS: ATORVASTATIN 80 MG TABLET PO SCH (20:46)
[2016-10-05] MEDS: MIRTAZAPINE 15 MG TABLET PO SCH (20:53)
[2016-10-06 01:20] VITALS: BP 153/88
[2016-10-06 05:14] LABS: BLOOD UREA NITROGEN 94 mg/dL (7-18)
[2016-10-06 05:19] LABS: ASPARTATE AMINO TRANSFERASE 25 U/L (15-37)
[2016-10-06 07:21] VITALS: BP 149/82
[2016-10-06] MEDS: PANTOPROZOLE 40MG TABLET PO SCH (08:26)
[2016-10-06] MEDS: FERROUS SULFATE 325 MG TABLET PO SCH ×2 (08:26→16:12)
[2016-10-06] MEDS: BISACODYL 5 MG EC TABLET PO SCH (08:26)
[2016-10-06] MEDS: SODIUM BICARBONATE 650 MG TABLET PO SCH ×2 (08:26→21:35)
[2016-10-06] MEDS: DOCUSATE 100 MG CAPSULE PO SCH ×2 (08:26→21:34)
[2016-10-06] MEDS: Budesonide/Formoterol Fumarate (Symbicort 160-4.5 Mcg Inhaler INH SCH ×2 (08:27→21:00)
[2016-10-06 12:48] VITALS: BP 139/79
[2016-10-06] MEDS: CEPHALEXIN 500 MG CAPSULE PO SCH (16:12)
[2016-10-06 19:34] VITALS: BP 154/88
[2016-10-06] MEDS: MIRTAZAPINE 15 MG TABLET PO SCH (21:34)
[2016-10-06] MEDS: ATORVASTATIN 80 MG TABLET PO SCH (21:35)
[2016-10-06] MEDS: TRAZODONE 50MG TABLET PO SCH (21:39)
[2016-10-07 01:20] VITALS: BP 109/65
[2016-10-07 07:10] VITALS: BP 142/82
[2016-10-07 07:28] LABS: BLOOD UREA NITROGEN 98 mg/dL (7-18)
[2016-10-07] MEDS: PANTOPROZOLE 40MG TABLET PO SCH (08:27)
[2016-10-07] MEDS: BISACODYL 5 MG EC TABLET PO SCH (08:27)
[2016-10-07] MEDS: SODIUM BICARBONATE 650 MG TABLET PO SCH ×2 (08:28→20:16)
[2016-10-07] MEDS: Budesonide/Formoterol Fumarate (Symbicort 160-4.5 Mcg Inhaler INH SCH ×2 (08:28→20:15)
[2016-10-07] MEDS: DOCUSATE 100 MG CAPSULE PO SCH ×2 (08:28→20:16)
[2016-10-07] MEDS: FERROUS SULFATE 325 MG TABLET PO SCH ×2 (08:28→17:42)
[2016-10-07 09:00] LABS: BLOOD UREA NITROGEN 98 mg/dL (7-18)
[2016-10-07] MEDS ORDERED: HEPARIN 1,000 UNITS/ML, 10ML IV PRN (10:30)
[2016-10-07 13:06] LABS: COMPLEMENT C3 97 mg/dL (82-167); COMPLEMENT C4 55 mg/dL (14-44); COMPLEMENT TOTAL (CH50) >60 U/mL (42-60)
[2016-10-07 14:07] LABS: FREE KAPPA LT CHAINS SERUM 125.8 mg/L (3.3-19.4); FREE LAMBDA LT CHAINS SERUM 128.9 mg/L (5.7-26.3); KAPPA/LAMBDA RATIO SERUM 0.98 (0.26-1.65)
[2016-10-07] MEDS: CEPHALEXIN 500 MG CAPSULE PO SCH (17:42)
[2016-10-07 18:23] VITALS: BP 147/87
[2016-10-07] MEDS: MIRTAZAPINE 15 MG TABLET PO SCH (20:16)
[2016-10-07] MEDS: ATORVASTATIN 80 MG TABLET PO SCH (20:16)
[2016-10-07] MEDS: TRAZODONE 50MG TABLET PO SCH (20:16)
[2016-10-07] MEDS: ACETAMINOPHEN 325 MG TABLET PO PRN (20:29)
[2016-10-08 05:17] LABS: BLOOD UREA NITROGEN 57 mg/dL (7-18)
[2016-10-08 06:16] LABS: HIV 1&2 ANTIBODY SCREEN Nonreactive (Nonreactive); HIV-1 p24 ANTIGEN Nonreactive (Nonreactive)
[2016-10-08 06:57] VITALS: BP 142/94
[2016-10-08] MEDS: FERROUS SULFATE 325 MG TABLET PO SCH ×2 (07:51→15:14)
[2016-10-08] MEDS: Budesonide/Formoterol Fumarate (Symbicort 160-4.5 Mcg Inhaler INH SCH ×2 (07:52→21:00)
[2016-10-08] MEDS: DOCUSATE 100 MG CAPSULE PO SCH ×2 (07:53→21:04)
[2016-10-08] MEDS: BISACODYL 5 MG EC TABLET PO SCH (07:53)
[2016-10-08] MEDS: PANTOPROZOLE 40MG TABLET PO SCH (07:54)
[2016-10-08] MEDS: SODIUM BICARBONATE 650 MG TABLET PO SCH ×2 (07:54→21:05)
[2016-10-08 08:36] LABS: HEP B SURF. AB < 3.1 mIU/mL (0.0-10.0)
[2016-10-08] MEDS: ONDANSETRON ODT 4 MG PO PRN (13:01)
[2016-10-08 13:07] LABS: A/G RATIO 1.1 (0.7-1.7); ALBUMIN 2.9 g/dL (2.9-4.4); ALPHA-1-GLOBULIN 0.2 g/dL (0.0-0.4); BETA GLOBULIN 0.9 g/dL (0.7-1.3); GAMMA GLOBULIN 0.7 g/dL (0.4-1.8); IMMUNOGLOBULIN A 273 mg/dL (87-352); IMMUNOGLOBULIN G 562 mg/dL (700-1600); IMMUNOGLOBULIN M 47 mg/dL (26-217); PROTEIN TOTAL 5.7 g/dL (6.0-8.5)
[2016-10-08 14:35] VITALS: BP 152/66
[2016-10-08] MEDS: CEPHALEXIN 500 MG CAPSULE PO SCH (15:14)
[2016-10-08] MEDS: ACETAMINOPHEN 325 MG TABLET PO PRN (15:23)
[2016-10-08 16:06] LABS: ANA SCREEN POSITIVE (Negative)
[2016-10-08 20:24] VITALS: BP 151/83
[2016-10-08] MEDS: TRAZODONE 50MG TABLET PO SCH (21:04)
[2016-10-08] MEDS: ATORVASTATIN 80 MG TABLET PO SCH (21:04)
[2016-10-08] MEDS: MIRTAZAPINE 15 MG TABLET PO SCH (21:05)
[2016-10-09 03:02] VITALS: BP 142/82
[2016-10-09] MEDS: ONDANSETRON ODT 4 MG PO PRN (05:21)
[2016-10-09 06:49] VITALS: BP 145/75
[2016-10-09] MEDS: FERROUS SULFATE 325 MG TABLET PO SCH ×2 (08:33→17:27)
[2016-10-09] MEDS: Budesonide/Formoterol Fumarate (Symbicort 160-4.5 Mcg Inhaler INH SCH ×2 (08:33→20:32)
[2016-10-09] MEDS: BISACODYL 5 MG EC TABLET PO SCH (08:33)
[2016-10-09] MEDS: DOCUSATE 100 MG CAPSULE PO SCH ×2 (08:33→20:32)
[2016-10-09] MEDS: SODIUM BICARBONATE 650 MG TABLET PO SCH ×2 (08:33→20:32)
[2016-10-09] MEDS: PANTOPROZOLE 40MG TABLET PO SCH (08:33)
[2016-10-09 09:00] LABS: BLOOD UREA NITROGEN 39 mg/dL (7-18)
[2016-10-09 11:19] LABS: BLOOD UREA NITROGEN 23 mg/dL (7-18)
[2016-10-09] MEDS: HEPARIN 5,000 UNITS/ML, 1ML SQ SCH ×2 (13:00→20:31)
[2016-10-09] MEDS: ACETAMINOPHEN 325 MG TABLET PO PRN (13:00)
[2016-10-09 14:00] VITALS: BP 149/81
[2016-10-09] MEDS: CEPHALEXIN 500 MG CAPSULE PO SCH (14:53)
[2016-10-09 15:06] LABS: PROTEINASE 3 (PR-3) AB <3.5 U/mL (0.0-3.5)
[2016-10-09 19:00] VITALS: BP 143/73
[2016-10-09] MEDS: MIRTAZAPINE 15 MG TABLET PO SCH (20:32)
[2016-10-09] MEDS: ATORVASTATIN 80 MG TABLET PO SCH (20:32)
[2016-10-09] MEDS: TRAZODONE 50MG TABLET PO SCH (23:55)
[2016-10-10 01:15] VITALS: BP 142/83
[2016-10-10 04:02] LABS: BLOOD UREA NITROGEN 29 mg/dL (7-18)
[2016-10-10] MEDS: HEPARIN 5,000 UNITS/ML, 1ML SQ SCH ×3 (05:16→21:00)
[2016-10-10 06:50] VITALS: BP 154/94
[2016-10-10] MEDS ORDERED: FUROSEMIDE 40 MG/4 ML IV ONE (07:30)
[2016-10-10] MEDS: PANTOPROZOLE 40MG TABLET PO SCH (08:32)
[2016-10-10] MEDS: SODIUM BICARBONATE 650 MG TABLET PO SCH ×2 (08:32→22:24)
[2016-10-10] MEDS: FERROUS SULFATE 325 MG TABLET PO SCH ×2 (08:32→17:45)
[2016-10-10] MEDS: Budesonide/Formoterol Fumarate (Symbicort 160-4.5 Mcg Inhaler INH SCH ×2 (08:32→22:23)
[2016-10-10] MEDS: BISACODYL 5 MG EC TABLET PO SCH (08:32)
[2016-10-10] MEDS: DOCUSATE 100 MG CAPSULE PO SCH ×2 (08:32→22:24)
[2016-10-10 13:13] VITALS: BP 160/85
[2016-10-10] MEDS: CEPHALEXIN 500 MG CAPSULE PO SCH (14:29)
[2016-10-10 19:26] VITALS: BP_SYST 170; BP_SYST 171; BP_DIAS 80; BP_DIAS 83
[2016-10-10] MEDS: MIRTAZAPINE 15 MG TABLET PO SCH (22:23)
[2016-10-10] MEDS: ATORVASTATIN 80 MG TABLET PO SCH (22:24)
[2016-10-10] MEDS: TRAZODONE 50MG TABLET PO SCH (22:24)
[2016-10-11 04:00] VITALS: BP 151/78
[2016-10-11] MEDS: HEPARIN 5,000 UNITS/ML, 1ML SQ SCH ×3 (05:00→21:59)
[2016-10-11 05:51] LABS: BLOOD UREA NITROGEN 17 mg/dL (7-18)
[2016-10-11] MEDS: FERROUS SULFATE 325 MG TABLET PO SCH ×2 (08:00→17:31)
[2016-10-11] MEDS: Budesonide/Formoterol Fumarate (Symbicort 160-4.5 Mcg Inhaler INH SCH ×2 (09:00→21:00)
[2016-10-11] MEDS: BISACODYL 5 MG EC TABLET PO SCH (09:00)
[2016-10-11] MEDS: DOCUSATE 100 MG CAPSULE PO SCH ×2 (09:00→21:58)
[2016-10-11] MEDS: PANTOPROZOLE 40MG TABLET PO SCH (09:00)
[2016-10-11] MEDS: SODIUM BICARBONATE 650 MG TABLET PO SCH ×2 (09:00→21:58)
[2016-10-11 09:50] VITALS: BP 169/84
[2016-10-11] MEDS ORDERED: FENTANYL PF 100 MCG/2ML ONE ×3 (10:35→11:43)
[2016-10-11] MEDS ORDERED: NALOXONE 1 MG/ML, 2ML ONE (10:36)
[2016-10-11] MEDS ORDERED: MIDAZOLAM 1 MG/ML, 5ML ONE ×2 (10:36→11:42)
[2016-10-11] MEDS ORDERED: FLUMAZENIL 0.1 MG/1 ML, 5ML ONE ×3 (10:36→11:43)
[2016-10-11] MEDS ORDERED: LIDOCAINE 1%, 20ML ONE (10:44)
[2016-10-11 13:11] VITALS: BP 166/97
[2016-10-11] MEDS: CEPHALEXIN 500 MG CAPSULE PO SCH (15:16)
[2016-10-11] MEDS: ACETAMINOPHEN 325 MG TABLET PO PRN (17:40)
[2016-10-11 19:23] VITALS: BP 127/84
[2016-10-11] MEDS: ATORVASTATIN 80 MG TABLET PO SCH (21:58)
[2016-10-11] MEDS: TRAZODONE 50MG TABLET PO SCH (21:58)
[2016-10-11] MEDS: MIRTAZAPINE 15 MG TABLET PO SCH (21:58)
[2016-10-12 02:52] VITALS: BP 120/71
[2016-10-12] MEDS: ACETAMINOPHEN 325 MG TABLET PO PRN (03:27)
[2016-10-12] MEDS: HEPARIN 5,000 UNITS/ML, 1ML SQ SCH ×3 (04:25→21:00)
[2016-10-12 08:29] LABS: BLOOD UREA NITROGEN 32 mg/dL (7-18)
[2016-10-12] MEDS: FERROUS SULFATE 325 MG TABLET PO SCH ×2 (09:00→15:49)
[2016-10-12 09:01] VITALS: BP 132/80
[2016-10-12] MEDS: Budesonide/Formoterol Fumarate (Symbicort 160-4.5 Mcg Inhaler INH SCH ×2 (09:30→21:00)
[2016-10-12] MEDS: DOCUSATE 100 MG CAPSULE PO SCH ×2 (09:30→21:57)
[2016-10-12] MEDS: SODIUM BICARBONATE 650 MG TABLET PO SCH ×2 (09:30→21:56)
[2016-10-12] MEDS: BISACODYL 5 MG EC TABLET PO SCH (09:30)
[2016-10-12] MEDS: PANTOPROZOLE 40MG TABLET PO SCH (09:30)
[2016-10-12] MEDS ORDERED: DIPHENHYDRAMINE 50 MG CAPSULE PO ONE (12:00)
[2016-10-12 13:59] VITALS: BP 153/61
[2016-10-12] MEDS: DIPHENHYDRAMINE 50 MG CAPSULE PO PRN ×2 (15:48→23:05)
[2016-10-12 18:43] VITALS: BP_SYST 161; BP_SYST 166; BP_DIAS 89; BP_DIAS 94
[2016-10-12] MEDS: TRAZODONE 50MG TABLET PO SCH (21:57)
[2016-10-12] MEDS: MIRTAZAPINE 15 MG TABLET PO SCH (21:57)
[2016-10-12] MEDS: ATORVASTATIN 80 MG TABLET PO SCH (21:57)
[2016-10-12 22:14] VITALS: BP 160/90
[2016-10-12] MEDS ORDERED: AMLODIPINE 2.5 MG TABLET PO ONE (23:30)
[2016-10-13 01:41] VITALS: BP 140/90
[2016-10-13] MEDS: HEPARIN 5,000 UNITS/ML, 1ML SQ SCH ×3 (04:24→20:22)
[2016-10-13 05:00] LABS: BLOOD UREA NITROGEN 20 mg/dL (7-18)
[2016-10-13] MEDS ORDERED: FUROSEMIDE 20 MG/2 ML IV ONE (07:30)
[2016-10-13] MEDS ORDERED: POTASSIUM CHLORIDE 20 MEQ PACKET PO ONE (07:30)
[2016-10-13 08:12] VITALS: BP 157/80
[2016-10-13] MEDS: Budesonide/Formoterol Fumarate (Symbicort 160-4.5 Mcg Inhaler INH SCH ×2 (08:14→20:27)
[2016-10-13] MEDS: AMLODIPINE 2.5 MG TABLET PO SCH (08:14)
[2016-10-13] MEDS: FERROUS SULFATE 325 MG TABLET PO SCH ×2 (08:14→17:22)
[2016-10-13] MEDS: PANTOPROZOLE 40MG TABLET PO SCH (08:14)
[2016-10-13] MEDS: DOCUSATE 100 MG CAPSULE PO SCH ×2 (08:14→20:18)
[2016-10-13] MEDS: BISACODYL 5 MG EC TABLET PO SCH (08:14)
[2016-10-13] MEDS: SODIUM BICARBONATE 650 MG TABLET PO SCH ×2 (08:14→20:18)
[2016-10-13] MEDS: CLOPIDOGREL 75 MG TABLET PO SCH (08:14)
[2016-10-13] MEDS: FUROSEMIDE 20 MG/2 ML IV ONE ×2 (10:30→10:50)
[2016-10-13] MEDS: DIPHENHYDRAMINE 50 MG CAPSULE PO PRN ×2 (10:50→20:18)
[2016-10-13 14:38] VITALS: BP 154/86
[2016-10-13] MEDS: ACETAMINOPHEN 325 MG TABLET PO PRN (15:27)
[2016-10-13 19:41] VITALS: BP 120/77
[2016-10-13] MEDS: TRAZODONE 50MG TABLET PO SCH (20:18)
[2016-10-13] MEDS: ATORVASTATIN 80 MG TABLET PO SCH (20:18)
[2016-10-14 01:03] VITALS: BP 119/69
[2016-10-14 05:22] LABS: BLOOD UREA NITROGEN 33 mg/dL (7-18)
[2016-10-14] MEDS: HEPARIN 5,000 UNITS/ML, 1ML SQ SCH ×3 (05:24→21:00)
[2016-10-14] MEDS: ACETAMINOPHEN 325 MG TABLET PO PRN ×2 (06:07→21:55)
[2016-10-14] MEDS: DIPHENHYDRAMINE 50 MG CAPSULE PO PRN ×3 (06:07→21:39)
[2016-10-14 07:54] VITALS: BP 158/83
[2016-10-14] MEDS: SODIUM BICARBONATE 650 MG TABLET PO SCH ×2 (07:55→21:39)
[2016-10-14] MEDS: BISACODYL 5 MG EC TABLET PO SCH (07:55)
[2016-10-14] MEDS: CLOPIDOGREL 75 MG TABLET PO SCH (07:55)
[2016-10-14] MEDS: PANTOPROZOLE 40MG TABLET PO SCH (07:55)
[2016-10-14] MEDS: DOCUSATE 100 MG CAPSULE PO SCH ×2 (07:55→21:40)
[2016-10-14] MEDS: FERROUS SULFATE 325 MG TABLET PO SCH ×2 (07:55→18:49)
[2016-10-14] MEDS: Budesonide/Formoterol Fumarate (Symbicort 160-4.5 Mcg Inhaler INH SCH ×2 (07:55→21:00)
[2016-10-14] MEDS: AMLODIPINE 2.5 MG TABLET PO SCH (07:55)
[2016-10-14 14:50] VITALS: BP 141/84
[2016-10-14 19:18] VITALS: BP 122/73
[2016-10-14] MEDS: TRAZODONE 50MG TABLET PO SCH (21:40)
[2016-10-14] MEDS: ATORVASTATIN 80 MG TABLET PO SCH (21:40)
[2016-10-15 00:58] VITALS: BP 114/75
[2016-10-15 05:00] LABS: BLOOD UREA NITROGEN 24 mg/dL (7-18)
[2016-10-15] MEDS: HEPARIN 5,000 UNITS/ML, 1ML SQ SCH ×4 (05:00→23:09)
[2016-10-15 05:05] LABS: ASPARTATE AMINO TRANSFERASE 10 U/L (15-37); TOTAL IRON BINDING CAPACITY 229 mcg/dL (250-450)
[2016-10-15] MEDS: DIPHENHYDRAMINE 50 MG CAPSULE PO PRN ×3 (06:31→20:49)
[2016-10-15 07:51] VITALS: BP 143/86
[2016-10-15] MEDS: Budesonide/Formoterol Fumarate (Symbicort 160-4.5 Mcg Inhaler INH SCH ×2 (09:00→20:49)
[2016-10-15] MEDS: BISACODYL 5 MG EC TABLET PO SCH (09:12)
[2016-10-15] MEDS: PANTOPROZOLE 40MG TABLET PO SCH (09:12)
[2016-10-15] MEDS: DOCUSATE 100 MG CAPSULE PO SCH ×2 (09:12→20:48)
[2016-10-15] MEDS: CLOPIDOGREL 75 MG TABLET PO SCH (09:12)
[2016-10-15] MEDS: SODIUM BICARBONATE 650 MG TABLET PO SCH (09:12)
[2016-10-15] MEDS: FERROUS SULFATE 325 MG TABLET PO SCH ×2 (09:12→17:23)
[2016-10-15 14:45] VITALS: BP 140/81
[2016-10-15 19:33] VITALS: BP 134/93
[2016-10-15] MEDS: ACETAMINOPHEN 325 MG TABLET PO PRN (20:48)
[2016-10-15] MEDS: ATORVASTATIN 80 MG TABLET PO SCH (20:49)
[2016-10-15] MEDS: TRAZODONE 50MG TABLET PO SCH (22:22)
[2016-10-16 00:55] VITALS: BP 144/81
[2016-10-16 05:56] LABS: BLOOD UREA NITROGEN 23 mg/dL (7-18)
[2016-10-16 06:48] VITALS: BP 127/72
[2016-10-16] MEDS: HEPARIN 5,000 UNITS/ML, 1ML SQ SCH ×3 (07:30→22:49)
[2016-10-16] MEDS: FERROUS SULFATE 325 MG TABLET PO SCH ×2 (08:20→17:51)
[2016-10-16] MEDS: BISACODYL 5 MG EC TABLET PO SCH (08:20)
[2016-10-16] MEDS: DOCUSATE 100 MG CAPSULE PO SCH ×2 (08:20→19:55)
[2016-10-16] MEDS: CLOPIDOGREL 75 MG TABLET PO SCH (08:20)
[2016-10-16] MEDS: PANTOPROZOLE 40MG TABLET PO SCH (08:20)
[2016-10-16] MEDS: DIPHENHYDRAMINE 50 MG CAPSULE PO PRN ×2 (08:21→17:51)
[2016-10-16] MEDS: Budesonide/Formoterol Fumarate (Symbicort 160-4.5 Mcg Inhaler INH SCH ×2 (09:00→19:55)
[2016-10-16 15:16] VITALS: BP 130/80
[2016-10-16 19:51] VITALS: BP 119/78
[2016-10-16] MEDS: TRAZODONE 50MG TABLET PO SCH (19:55)
[2016-10-16] MEDS: ATORVASTATIN 80 MG TABLET PO SCH (19:55)
[2016-10-17 01:41] VITALS: BP 137/85
[2016-10-17 06:02] LABS: BLOOD UREA NITROGEN 47 mg/dL (7-18)
[2016-10-17] MEDS ORDERED: LIDOCAINE 2%, 20ML ONE (07:13)
[2016-10-17] MEDS ORDERED: ISOPROTERENOL 0.2MG/ML, 5ML ONE (07:13)
[2016-10-17] MEDS ORDERED: ADENOSINE 6 MG/2 ML ONE (07:13)
[2016-10-17] MEDS ORDERED: MIDAZOLAM 1 MG/ML, 5ML ONE (07:13)
[2016-10-17] MEDS ORDERED: FENTANYL PF 100 MCG/2ML ONE (07:13)
[2016-10-17] MEDS: HEPARIN 5,000 UNITS/ML, 1ML SQ SCH ×3 (07:30→21:34)
[2016-10-17 07:38] VITALS: BP 132/84
[2016-10-17] MEDS: Budesonide/Formoterol Fumarate (Symbicort 160-4.5 Mcg Inhaler INH SCH ×2 (07:51→21:00)
[2016-10-17] MEDS: PANTOPROZOLE 40MG TABLET PO SCH (07:51)
[2016-10-17] MEDS: FERROUS SULFATE 325 MG TABLET PO SCH ×2 (07:51→16:56)
[2016-10-17] MEDS: BISACODYL 5 MG EC TABLET PO SCH (07:51)
[2016-10-17] MEDS: CLOPIDOGREL 75 MG TABLET PO SCH (07:51)
[2016-10-17] MEDS: DOCUSATE 100 MG CAPSULE PO SCH ×2 (07:51→21:34)
[2016-10-17 13:18] VITALS: BP 113/69
[2016-10-17 19:46] VITALS: BP 123/72
[2016-10-17] MEDS: AMIODARONE 200 MG TABLET PO SCH (21:34)
[2016-10-17] MEDS: DIPHENHYDRAMINE 50 MG CAPSULE PO PRN (21:34)
[2016-10-17] MEDS: ATORVASTATIN 80 MG TABLET PO SCH (21:34)
[2016-10-17] MEDS: TRAZODONE 50MG TABLET PO SCH (21:34)
[2016-10-18 01:27] VITALS: BP 99/66
[2016-10-18 06:00] LABS: BLOOD UREA NITROGEN 28 mg/dL (7-18)
[2016-10-18 07:15] VITALS: BP 127/79
[2016-10-18] MEDS: HEPARIN 5,000 UNITS/ML, 1ML SQ SCH ×3 (07:30→21:53)
[2016-10-18] MEDS: BISACODYL 5 MG EC TABLET PO SCH (08:25)
[2016-10-18] MEDS: AMIODARONE 200 MG TABLET PO SCH ×2 (08:26→20:48)
[2016-10-18] MEDS: FERROUS SULFATE 325 MG TABLET PO SCH ×2 (08:26→17:25)
[2016-10-18] MEDS: PANTOPROZOLE 40MG TABLET PO SCH (08:26)
[2016-10-18] MEDS: DOCUSATE 100 MG CAPSULE PO SCH ×2 (08:26→20:47)
[2016-10-18] MEDS: Budesonide/Formoterol Fumarate (Symbicort 160-4.5 Mcg Inhaler INH SCH ×2 (08:27→20:46)
[2016-10-18] MEDS: DIPHENHYDRAMINE 50 MG CAPSULE PO PRN (11:08)
[2016-10-18 14:00] VITALS: BP 112/75
[2016-10-18] MEDS: CLOPIDOGREL 75 MG TABLET PO SCH (17:25)
[2016-10-18 19:42] VITALS: BP 118/71
[2016-10-18] MEDS: ATORVASTATIN 80 MG TABLET PO SCH (20:48)
[2016-10-18] MEDS: TRAZODONE 50MG TABLET PO SCH (21:00)
[2016-10-19 01:24] VITALS: BP 124/77
[2016-10-19 05:38] LABS: BLOOD UREA NITROGEN 47 mg/dL (7-18)
[2016-10-19 06:50] VITALS: BP 129/76
[2016-10-19] MEDS: HEPARIN 5,000 UNITS/ML, 1ML SQ SCH ×3 (07:30→21:50)
[2016-10-19] MEDS: FERROUS SULFATE 325 MG TABLET PO SCH ×2 (08:30→18:10)
[2016-10-19] MEDS: Budesonide/Formoterol Fumarate (Symbicort 160-4.5 Mcg Inhaler INH SCH ×2 (08:31→21:50)
[2016-10-19] MEDS: DOCUSATE 100 MG CAPSULE PO SCH ×2 (08:31→21:51)
[2016-10-19] MEDS: BISACODYL 5 MG EC TABLET PO SCH (08:32)
[2016-10-19] MEDS: PANTOPROZOLE 40MG TABLET PO SCH (08:32)
[2016-10-19] MEDS: CLOPIDOGREL 75 MG TABLET PO SCH (08:32)
[2016-10-19] MEDS: AMIODARONE 200 MG TABLET PO SCH ×2 (08:32→21:51)
[2016-10-19] MEDS: DIPHENHYDRAMINE 50 MG CAPSULE PO PRN (11:22)
[2016-10-19 15:12] VITALS: BP 105/67
[2016-10-19 19:34] VITALS: BP 133/83
[2016-10-19] MEDS: TRAZODONE 50MG TABLET PO SCH (21:51)
[2016-10-19] MEDS: ATORVASTATIN 80 MG TABLET PO SCH (21:51)
[2016-10-20 05:00] VITALS: BP 118/67
[2016-10-20 05:11] LABS: BLOOD UREA NITROGEN 35 mg/dL (7-18)
[2016-10-20] MEDS: HEPARIN 5,000 UNITS/ML, 1ML SQ SCH (07:30)
[2016-10-20 08:10] VITALS: BP 127/77
[2016-10-20] MEDS: Budesonide/Formoterol Fumarate (Symbicort 160-4.5 Mcg Inhaler INH SCH (08:54)
[2016-10-20] MEDS: DOCUSATE 100 MG CAPSULE PO SCH (08:54)
[2016-10-20] MEDS: BISACODYL 5 MG EC TABLET PO SCH (08:55)
[2016-10-20] MEDS: FERROUS SULFATE 325 MG TABLET PO SCH (08:58)
[2016-10-20] MEDS: CLOPIDOGREL 75 MG TABLET PO SCH (08:59)
[2016-10-20] MEDS: PANTOPROZOLE 40MG TABLET PO SCH (08:59)
[2016-10-20] MEDS: AMIODARONE 200 MG TABLET PO SCH (08:59)
[2016-10-20] MEDS ORDERED: AMIO200T42 PO (10:26)
[2016-10-20] MEDS ORDERED: OMEP-110 PO (10:37)
[2016-10-20 13:18] VITALS: BP 121/77
== END 2016-10-20 14:58 | disposition home or self-care (01) | DRG 673 ==
LOC: ED 18:54 → EDIP 19:42 → 4WST 21:42 → 5SO 10-17 10:43
PROVIDERS: ADMIT Family Medicine; ATTEND Family Medicine
PROC: 02HV33Z Insertion of Infusion Device into Superior Vena Cava, Percutaneous Approach (ICD-10-PCS; 2016-10-07)
PROC: B5181ZA Fluoroscopy of Superior Vena Cava using Low Osmolar Contrast, Guidance (ICD-10-PCS; 2016-10-07)
PROC: B548ZZA Ultrasonography of Superior Vena Cava, Guidance (ICD-10-PCS; 2016-10-07)
PROC: 0TB13ZX Excision of Left Kidney, Percutaneous Approach, Diagnostic (ICD-10-PCS; principal; 2016-10-11)
PROC: 02HV33Z Insertion of Infusion Device into Superior Vena Cava, Percutaneous Approach (ICD-10-PCS; 2016-10-11)
PROC: B5181ZA Fluoroscopy of Superior Vena Cava using Low Osmolar Contrast, Guidance (ICD-10-PCS; 2016-10-11)
PROC: B548ZZA Ultrasonography of Superior Vena Cava, Guidance (ICD-10-PCS; 2016-10-11)
PROC: 5A1D60Z (ICD-10-PCS; 2016-10-11)
PROC: 0JH63XZ Insertion of Tunneled Vascular Access Device into Chest Subcutaneous Tissue and Fascia, Percutaneous Approach (ICD-10-PCS; 2016-10-11)
DX: I12.9 Hypertensive chronic kidney disease with stage 1 through stage 4 chronic kidney disease, or unspecified chronic kidney disease (principal); N17.0 Acute kidney failure with tubular necrosis; E87.2 Acidosis; E87.1 Hypo-osmolality and hyponatremia; R65.10 Systemic inflammatory response syndrome (SIRS) of non-infectious origin without acute organ dysfunction; E46 Unspecified protein-calorie malnutrition; I47.1 Supraventricular tachycardia; I50.22 Chronic systolic (congestive) heart failure; I42.9 Cardiomyopathy, unspecified; D64.9 Anemia, unspecified; E11.65 Type 2 diabetes mellitus with hyperglycemia; E66.9 Obesity, unspecified; E78.5 Hyperlipidemia, unspecified; E86.0 Dehydration; E86.1 Hypovolemia; G89.29 Other chronic pain; I25.10 Atherosclerotic heart disease of native coronary artery without angina pectoris; I08.0 Rheumatic disorders of both mitral and aortic valves; I44.0 Atrioventricular block, first degree; I48.91 Unspecified atrial fibrillation; Z96.659 Presence of unspecified artificial knee joint; E11.649 Type 2 diabetes mellitus with hypoglycemia without coma; E11.51 Type 2 diabetes mellitus with diabetic peripheral angiopathy without gangrene; J44.9 Chronic obstructive pulmonary disease, unspecified; M32.9 Systemic lupus erythematosus, unspecified; M19.90 Unspecified osteoarthritis, unspecified site; Z79.82 Long term (current) use of aspirin; Z82.49 Family history of ischemic heart disease and other diseases of the circulatory system; Z87.891 Personal history of nicotine dependence; I25.2 Old myocardial infarction; Z95.1 Presence of aortocoronary bypass graft; Z98.84 Bariatric surgery status; Z99.2 Dependence on renal dialysis; Z90.710 Acquired absence of both cervix and uterus; Z98.51 Tubal ligation status; Z68.33 Body mass index [BMI] 33.0-33.9, adult; Z83.3 Family history of diabetes mellitus; I48.0 Paroxysmal atrial fibrillation; E11.22 Type 2 diabetes mellitus with diabetic chronic kidney disease; N18.9 Chronic kidney disease, unspecified
CPT/HCPCS: 36415; 36565; 36569; 50200; 70551; 71010; 71020; 74176; 76380; 76937; 77001; 77012; 80048; 80053; 80069; 81001; 82040; 82306; 82436; 82550; 82570; 82728; 82784; 82962; 83036; 83516; 83520; 83540; 83550; 83690; 83735; 83880; 83883; 83970; 84100; 84133; 84134; 84155; 84165; 84300; 84443; 84484; 84550; 85025; 85610; 86038; 86039; 86160; 86162; 86225; 86256; 86334; 86480; 86703; 86704; 86706; 86708; 86803; 87086; 87340; 87899; 88300; 93005; 93306; 96361; 96374; 96375; 99156; 99157; J0153; J1644; J1940; J2250; J2405; J3010; J3490; Q0162; C1750; C1751; G0435; J1642; J2310; J7030; J7040; J7120

== ENCOUNTER → 2016-11-11 | Outpatient (CLI) | payer OTHER ==
[~2016-11-11] MED LIST changes: +AMIO200T42 PO; +OMEP-110 PO
== END | disposition home or self-care (01) ==
LOC: CARD 12:15
PROVIDERS: ATTEND Internal Medicine Critical Care Medicine
DX: R06.02 Shortness of breath (principal)
CPT/HCPCS: 94060; 94620; 94726; 94729

== ENCOUNTER 2016-11-27 14:51 | Inpatient (IN) | payer OTHER ==
[~2016-11-27] VITALS: Ht 152.4 cm; Wt 80.3 kg
[~2016-11-27 14:51] MED LIST changes: +ATOR-2 PO; -ATOR80TA75 PO; +DOCU100C33 PO; -DOCU100C8 PO; +FERR325T18 PO; -FERR325T20 PO; -HYDR-3144 PO; +HYDR-3245 PO; -MAGN400O4 PO; +MAGN400O7 PO; -MELO-184 PO; +MELO15TA24 PO; +POTA20PA25 PO; -POTA20PA8 PO
[2016-11-27] MEDS ORDERED: SODIUM CHLORIDE FLUSH 10ML SYR IVF ONE (15:00)
[2016-11-27 15:29] LABS: HEMATOCRIT 26.5 % (34.6-47.8); HEMOGLOBIN 8.4 g/dL (11.7-16.4); WHITE BLOOD COUNT 6.6 x10^3/uL (3.4-10)
[2016-11-27 15:38] LABS: BLOOD UREA NITROGEN 31 mg/dL (7-18)
[2016-11-27] MEDS ORDERED: CEFTRIAXONE PMX 1GM/50ML 50 ML IVPB ONE (16:00)
[2016-11-27] MEDS ORDERED: CEFTRIAXONE PMX 1GM/50ML 50 ML ONE (16:02)
[2016-11-27] MEDS ORDERED: SODIUM CHLORIDE FLUSH 10ML SYR IVF PRN (18:00)
[2016-11-27] MEDS ORDERED: LABETALOL 5MG/ML, 20ML IVPush PRN (18:30)
[2016-11-27] MEDS ORDERED: ONDANSETRON 2MG/ML, 2ML IVPush PRN (18:30)
[2016-11-27] MEDS ORDERED: ACETAMINOPHEN 325 MG TABLET PO PRN (18:30)
[2016-11-27] MEDS ORDERED: DOCUSATE 100 MG CAPSULE PO PRN (18:30)
[2016-11-27] MEDS ORDERED: ONDANSETRON ODT 4 MG PO PRN (18:30)
[2016-11-27] MEDS ORDERED: ENALAPRILAT 1.25 MG/ML, 2ML IVPush PRN (18:30)
[2016-11-27] MEDS ORDERED: morphine SULFATE 10 MG/ML, 1ML IVPush PRN (18:30)
[2016-11-27] MEDS ORDERED: HYDROcodone/APAP 5/325 TABLET PO PRN (18:30)
[2016-11-27] MEDS ORDERED: IPRATROPIUM 0.5 MG/2.5 ML INHA NPPB PRN ×2 (19:00→23:30)
[2016-11-27] MEDS ORDERED: BISACODYL 10 MG SUPP PR PRN (19:00)
[2016-11-27] MEDS ORDERED: FUROSEMIDE 20 MG/2 ML IV ONE (19:00)
[2016-11-27] MEDS ORDERED: FUROSEMIDE 20 MG/2 ML ONE (19:44)
[2016-11-27 20:19] LABS: PATH.CAST-FLAG NOT PRESENT; SPERM-FLAG NOT PRESENT; SRC-FLAG NOT PRESENT; XTAL-FLAG NOT PRESENT; YLC-FLAG NOT PRESENT
[2016-11-27 20:43] VITALS: BP 160/78
[2016-11-27] MEDS ORDERED: BUDESONIDE 0.5 MG/2 ML INHA INH SCH (21:00)
[2016-11-27] MEDS: INSULIN REGULAR 100 UNITS/ML, 3ML VIAL SQ-INSULIN SCH (21:00)
[2016-11-27 21:38] VITALS: BP 160/78
[2016-11-27] MEDS: AMIODARONE 200 MG TABLET PO SCH (21:58)
[2016-11-27] MEDS: ATORVASTATIN 80 MG TABLET PO SCH (21:58)
[2016-11-27] MEDS: FERROUS SULFATE 325 MG TABLET PO SCH (21:58)
[2016-11-27] MEDS: TRAZODONE 50MG TABLET PO SCH (21:58)
[2016-11-27] MEDS: GABAPENTIN 300 MG CAPSULE PO SCH (21:58)
[2016-11-27] MEDS ORDERED: BUDESONIDE 0.5 MG/2 ML INHA NPPB SCH (23:30)
[2016-11-28 01:46] VITALS: BP 116/57
[2016-11-28 05:38] LABS: HEMOGLOBIN 8.3 g/dL (11.7-16.4)
[2016-11-28 05:56] LABS: BLOOD UREA NITROGEN 40 mg/dL (7-18)
[2016-11-28] MEDS: INSULIN REGULAR 100 UNITS/ML, 3ML VIAL SQ-INSULIN SCH ×4 (07:00→21:00)
[2016-11-28 08:00] VITALS: BP 161/79
[2016-11-28] MEDS: CLOPIDOGREL 75 MG TABLET PO SCH (09:00)
[2016-11-28] MEDS: FERROUS SULFATE 325 MG TABLET PO SCH ×2 (09:00→16:41)
[2016-11-28] MEDS: OMEPRAZOLE 20 MG CAPSULE.DR PO SCH (09:00)
[2016-11-28] MEDS: AMIODARONE 200 MG TABLET PO SCH ×2 (09:00→21:01)
[2016-11-28] MEDS: GABAPENTIN 300 MG CAPSULE PO SCH ×3 (09:00→21:02)
[2016-11-28] MEDS: BUDESONIDE 0.5 MG/2 ML INHA INH SCH (09:18)
[2016-11-28] MEDS ORDERED: ARANESP 100 MCG/ML **ESRD SQ SCH (12:30)
[2016-11-28] MEDS ORDERED: CEPH-368 PO (14:11)
[2016-11-28] MEDS ORDERED: CEPHALEXIN 250 MG CAPSULE PO PRN (17:00)
[2016-11-28 17:23] LABS: HEP B SURF. AB < 3.1 mIU/mL (0.0-10.0)
[2016-11-28 20:56] VITALS: BP 141/76
[2016-11-28] MEDS ORDERED: CEPHALEXIN 500 MG CAPSULE PO SCH (21:00)
[2016-11-28] MEDS ORDERED: CEPHALEXIN 250 MG/5 ML, ORAL SUSP PO SCH (21:00)
[2016-11-28] MEDS: TRAZODONE 50MG TABLET PO SCH (21:01)
[2016-11-28] MEDS: ATORVASTATIN 80 MG TABLET PO SCH (21:01)
[2016-11-29 01:40] VITALS: BP 133/75
[2016-11-29 07:03] VITALS: BP 146/82
[2016-11-29 07:59] LABS: BLOOD UREA NITROGEN 21 mg/dL (7-18)
[2016-11-29] MEDS: INSULIN REGULAR 100 UNITS/ML, 3ML VIAL SQ-INSULIN SCH ×4 (08:00→19:57)
[2016-11-29] MEDS: OMEPRAZOLE 20 MG CAPSULE.DR PO SCH (08:16)
[2016-11-29 08:33] LABS: IS PT STATUS REG ER OR PRE ER? NO
[2016-11-29] MEDS ORDERED: CEPHALEXIN 500 MG CAPSULE PO SCH (09:00)
[2016-11-29] MEDS ORDERED: CEPHALEXIN 250 MG CAPSULE PO SCH (09:56)
[2016-11-29] MEDS: CLOPIDOGREL 75 MG TABLET PO SCH (10:29)
[2016-11-29] MEDS: FERROUS SULFATE 325 MG TABLET PO SCH ×2 (10:29→17:37)
[2016-11-29] MEDS: AMIODARONE 200 MG TABLET PO SCH ×2 (10:29→20:30)
[2016-11-29] MEDS: GABAPENTIN 300 MG CAPSULE PO SCH ×3 (10:29→20:30)
[2016-11-29] MEDS: BUDESONIDE 0.5 MG/2 ML INHA INH SCH (11:55)
[2016-11-29 13:42] LABS: IS PT STATUS REG ER OR PRE ER? NO
[2016-11-29 14:27] VITALS: BP 133/70
[2016-11-29 19:45] LABS: IS PT STATUS REG ER OR PRE ER? NO
[2016-11-29 20:05] VITALS: BP 141/77
[2016-11-29] MEDS: ATORVASTATIN 80 MG TABLET PO SCH (20:30)
[2016-11-29] MEDS: TRAZODONE 50MG TABLET PO SCH (20:30)
[2016-11-30 01:30] VITALS: BP 167/79
[2016-11-30 05:26] LABS: BLOOD UREA NITROGEN 34 mg/dL (7-18)
[2016-11-30] MEDS: INSULIN REGULAR 100 UNITS/ML, 3ML VIAL SQ-INSULIN SCH ×2 (07:00→11:00)
[2016-11-30 07:56] VITALS: BP 165/82
[2016-11-30] MEDS: CLOPIDOGREL 75 MG TABLET PO SCH (08:22)
[2016-11-30] MEDS: AMIODARONE 200 MG TABLET PO SCH (08:22)
[2016-11-30] MEDS: OMEPRAZOLE 20 MG CAPSULE.DR PO SCH (08:22)
[2016-11-30] MEDS: FERROUS SULFATE 325 MG TABLET PO SCH (08:22)
[2016-11-30] MEDS: GABAPENTIN 300 MG CAPSULE PO SCH (08:23)
[2016-11-30 09:07] LABS: HEPATITIS B SURFACE AG SCREEN Positive (Negative)
[2016-11-30] MEDS: BUDESONIDE 0.5 MG/2 ML INHA INH SCH (12:29)
== END 2016-11-30 13:50 | disposition home or self-care (01) | DRG 545 ==
LOC: ED 16:42 → EDIP 17:35 → INTOOBSV 17:35 → 4EST 20:39 → OBSVTOIN 11-28 16:57
PROVIDERS: ADMIT Family Medicine; ATTEND Family Medicine
PROC: 5A1D00Z (ICD-10-PCS; principal; 2016-11-28)
DX: I77.6 Arteritis, unspecified (principal); N18.6 End stage renal disease; N17.0 Acute kidney failure with tubular necrosis; E43 Unspecified severe protein-calorie malnutrition; I13.2 Hypertensive heart and chronic kidney disease with heart failure and with stage 5 chronic kidney disease, or end stage renal disease; D69.3 Immune thrombocytopenic purpura; D89.9 Disorder involving the immune mechanism, unspecified; E10.22 Type 1 diabetes mellitus with diabetic chronic kidney disease; N39.0 Urinary tract infection, site not specified; N25.0 Renal osteodystrophy; D63.1 Anemia in chronic kidney disease; F41.9 Anxiety disorder, unspecified; G47.00 Insomnia, unspecified; I25.10 Atherosclerotic heart disease of native coronary artery without angina pectoris; I25.2 Old myocardial infarction; I50.9 Heart failure, unspecified; J44.9 Chronic obstructive pulmonary disease, unspecified; K21.9 Gastro-esophageal reflux disease without esophagitis; K59.00 Constipation, unspecified; R79.1 Abnormal coagulation profile; Z79.02 Long term (current) use of antithrombotics/antiplatelets; Z79.4 Long term (current) use of insulin; Z95.1 Presence of aortocoronary bypass graft; Z99.2 Dependence on renal dialysis; I87.2 Venous insufficiency (chronic) (peripheral); S80.862A Insect bite (nonvenomous), left lower leg, initial encounter; S80.861A Insect bite (nonvenomous), right lower leg, initial encounter
CPT/HCPCS: 36415; 71010; 80048; 81001; 82040; 82962; 83605; 83880; 84145; 84484; 85025; 85384; 85610; 85730; 86706; 87040; 87086; 87340; 93005; 93970; 94640; 96365; 96375; G0378; J0696; J0882; J7626; J1940

== ENCOUNTER 2017-03-24 07:55 | Day surgery (SDC) | payer OTHER ==
[~2017-03-24] VITALS: Ht 151.1 cm; Wt 74.4 kg
[~2017-03-24 07:55] MED LIST changes: +CEPH-368 PO; +HEPARIN 1,000 UNITS/ML, 10ML ONE; +PROTAMINE SULFATE 10 MG/ML, 5ML ONE; +THROMBIN 5,000 UNIT VIAL TP ONE
[2017-03-24] MEDS ORDERED: TRAM50TA2 PO (09:01)
[2017-03-24] MEDS ORDERED: FERR325T5 PO (09:01)
[2017-03-24] MEDS ORDERED: DOCU-180 PO (09:01)
[2017-03-24] MEDS ORDERED: BUDE10.22 INH (09:01)
[2017-03-24] MEDS ORDERED: GABA300C10 PO (09:01)
[2017-03-24] MEDS ORDERED: AMIO200T42 PO (09:01)
[2017-03-24] MEDS ORDERED: FURO-92 PO (09:01)
[2017-03-24] MEDS ORDERED: CARV6.252 PO (09:01)
[2017-03-24] MEDS ORDERED: TRAZ50TA18 PO (09:01)
[2017-03-24] MEDS ORDERED: CLOP75TA PO (09:01)
[2017-03-24] MEDS ORDERED: ATOR-2 PO (09:01)
[2017-03-24 09:12] VITALS: BP 123/83
[2017-03-24] MEDS ORDERED: SODIUM CHLORIDE 0.9% 1,000 ML IV SCH (09:32)
[2017-03-24] MEDS ORDERED: MIDAZOLAM 1 MG/ML, 2ML ONE (09:47)
[2017-03-24] MEDS ORDERED: FENTANYL PF 100 MCG/2ML ONE ×2 (09:47→11:28)
[2017-03-24] MEDS ORDERED: CEFAZOLIN 1,000 MG ONE (10:05)
[2017-03-24] MEDS ORDERED: NEOSTIGMINE 1 MG/ML, 10ML ONE (10:05)
[2017-03-24] MEDS ORDERED: LIDOCAINE-MPF 2% ,5ML ONE (10:07)
[2017-03-24] MEDS ORDERED: PROPOFOL 10 MG/ML, 20ML ONE (10:07)
[2017-03-24] MEDS ORDERED: ONDANSETRON 2MG/ML, 2ML ONE ×2 (10:21)
[2017-03-24] MEDS ORDERED: DEXAMETHASONE 4 MG/ML, 1ML ONE ×2 (10:21)
[2017-03-24] MEDS ORDERED: ACETAMINOPHEN 325 MG TABLET PO PRN (10:30)
[2017-03-24] MEDS ORDERED: MEPERIDINE/PF 25MG/0.5ML IVPush PRN (10:30)
[2017-03-24] MEDS ORDERED: OXYcodone 5 MG/5 ML ORAL.SOL UDC PO PRN (10:30)
[2017-03-24] MEDS ORDERED: LABETALOL 5MG/ML, 20ML IV PRN (10:30)
[2017-03-24] MEDS ORDERED: PROMETHAZINE 25 MG/ML, 1ML IV PRN (10:30)
[2017-03-24] MEDS ORDERED: ONDANSETRON 2MG/ML, 2ML IVPush PRN (10:30)
[2017-03-24] MEDS ORDERED: HYDROmorphone 1 MG/ML, 1ML IV PRN (10:30)
[2017-03-24] MEDS ORDERED: hydrALAzine 20 MG/ML, 1ML IV PRN (10:30)
[2017-03-24] MEDS ORDERED: ACETAMINOPHEN 650 MG/20.3 ML UDC ONE (11:28)
[2017-03-24] MEDS ORDERED: OXYcodone 5 MG/5 ML ORAL.SOL UDC ONE (11:29)
[2017-03-24] MEDS: FENTANYL PF 100 MCG/2ML IV PRN ×2 (11:32→11:46)
== END 2017-03-24 13:10 ==
LOC: OUT 07:55
PROVIDERS: ATTEND Surgery Vascular Surgery
DX: E11.22 Type 2 diabetes mellitus with diabetic chronic kidney disease (principal); N18.6 End stage renal disease; J44.9 Chronic obstructive pulmonary disease, unspecified
CPT/HCPCS: 36415; 36821; 80047; 93005; J0690; J1100; J1644; J2250; J2405; J2704; J2710; J3010; J3490; J7030; J2720

== ENCOUNTER 2017-05-19 06:46 | Day surgery (SDC) | payer MEDICARE ==
[~2017-05-19] VITALS: Ht 149.9 cm; Wt 75.4 kg
[~2017-05-19 06:46] MED LIST changes: +BUDE10.22 INH; +CARV6.252 PO; +DOCU-180 PO; +FERR325T5 PO; -HEPARIN 1,000 UNITS/ML, 10ML ONE; -PROTAMINE SULFATE 10 MG/ML, 5ML ONE; -THROMBIN 5,000 UNIT VIAL TP ONE
[2017-05-19] MEDS ORDERED: HEPARIN 1,000 UNITS/ML, 10ML ONE (06:57)
[2017-05-19] MEDS ORDERED: PROTAMINE SULFATE 10 MG/ML, 5ML ONE (06:57)
[2017-05-19] MEDS ORDERED: SODIUM CHLORIDE 0.9% 1,000 ML IV SCH (07:11)
[2017-05-19 07:13] VITALS: BP 154/60
[2017-05-19] MEDS ORDERED: LIDOCAINE 1%, 2ML SQ PRN (07:30)
[2017-05-19] MEDS ORDERED: MIDAZOLAM 1 MG/ML, 2ML ONE (08:22)
[2017-05-19] MEDS ORDERED: FENTANYL PF 100 MCG/2ML ONE ×2 (08:22→09:54)
[2017-05-19] MEDS ORDERED: PROPOFOL 10 MG/ML, 20ML ONE (08:26)
[2017-05-19] MEDS ORDERED: ONDANSETRON 2MG/ML, 2ML ONE (08:26)
[2017-05-19] MEDS ORDERED: CEFAZOLIN 1,000 MG ONE (08:26)
[2017-05-19] MEDS ORDERED: DEXAMETHASONE 4 MG/ML, 1ML ONE (08:26)
[2017-05-19] MEDS ORDERED: HYDROmorphone 1 MG/ML, 1ML IV PRN (09:00)
[2017-05-19] MEDS ORDERED: ONDANSETRON 2MG/ML, 2ML IVPush PRN (09:00)
[2017-05-19] MEDS ORDERED: LABETALOL 5MG/ML, 20ML IV PRN (09:00)
[2017-05-19] MEDS ORDERED: DIAZEPAM 5 MG/ML, 2ML IVPush PRN (09:00)
[2017-05-19] MEDS ORDERED: hydrALAzine 20 MG/ML, 1ML IV PRN (09:00)
[2017-05-19] MEDS ORDERED: ACETAMINOPHEN 325 MG TABLET PO PRN (09:00)
[2017-05-19] MEDS ORDERED: ALBUTEROL/IPRATROPIUM 2.5MG/0.5MG, 3 ML NPPB PRN (09:00)
[2017-05-19] MEDS ORDERED: MIDAZOLAM 1 MG/ML, 2ML IV PRN (09:00)
[2017-05-19] MEDS ORDERED: OXYcodone 5 MG/5 ML ORAL.SOL UDC PO PRN (09:00)
[2017-05-19] MEDS ORDERED: ACETAMINOPHEN 650 MG/20.3 ML UDC ONE (09:54)
[2017-05-19] MEDS ORDERED: OXYcodone 5 MG/5 ML ORAL.SOL UDC ONE (09:55)
[2017-05-19] MEDS: FENTANYL PF 100 MCG/2ML IV PRN ×2 (09:58→10:15)
== END 2017-05-19 12:25 | disposition home or self-care (01) ==
LOC: OUT 06:46
PROVIDERS: ATTEND Surgery Vascular Surgery
DX: T82.590A Other mechanical complication of surgically created arteriovenous fistula, initial encounter (principal); Y83.8 Other surgical procedures as the cause of abnormal reaction of the patient, or of later complication, without mention of misadventure at the time of the procedure; Y92.89 Other specified places as the place of occurrence of the external cause; I12.0 Hypertensive chronic kidney disease with stage 5 chronic kidney disease or end stage renal disease; E11.22 Type 2 diabetes mellitus with diabetic chronic kidney disease; N18.6 End stage renal disease; I25.10 Atherosclerotic heart disease of native coronary artery without angina pectoris; E78.5 Hyperlipidemia, unspecified; Z87.891 Personal history of nicotine dependence; J45.909 Unspecified asthma, uncomplicated
CPT/HCPCS: 36415; 36819; 80047; J0690; J1100; J1644; J2250; J2405; J2704; J3010; J7030; J2720

== ENCOUNTER 2017-11-24 06:20 | Day surgery (SDC) | payer MEDICARE ==
[2017-11-21 10:39] VITALS: BP 145/88
[2017-11-21 11:15] LABS: BASOPHILS # (AUTO) 0.06 x10^3/uL (0-0.1); BASOPHILS % (AUTO) 1 % (0-1); EOSINOPHILS # (AUTO) 0.16 x10^3/uL (0-0.4); EOSINOPHILS % (AUTO) 2 % (1-7); LYMPHOCYTES # (AUTO) 1.86 x10^3/uL (1-3.4); LYMPHOCYTES % (AUTO) 26 % (22-44); MD NO; MEAN CORPUSCULAR HEMOGLOBIN 31.9 pg (27.0-34.8); MEAN CORPUSCULAR HGB CONC 33.7 g/dL (32.4-35.8); MEAN CORPUSCULAR VOLUME 94.6 fL (80-100); MEAN PLATELET VOLUME 8.1 fL (7.4-10.4); MONOCYTES # (AUTO) 0.65 x10^3/uL (0.2-0.8); MONOCYTES % (AUTO) 9 % (2-9); NEUTROPHILS % (AUTO) 61 % (42-75); PLATELET COUNT 313 x10^3/uL (130-400); RED BLOOD COUNT 3.68 x10^6/uL (3.82-5.3); RED CELL DISTRIBUTION WIDTH 16.2 % (9.6-15.2)
[2017-11-21 11:17] LABS: ALANINE AMINOTRANSFERASE 24 U/L (12-78); ALBUMIN 3.1 g/dL (3.4-5.0); ANION GAP 13 mmol/L (5-15); CALCIUM 8.9 mg/dL (8.5-10.1); CHLORIDE 98 mmol/L (98-107); CREATININE 5.25 mg/dL (0.55-1.02)
[2017-11-21 11:20] LABS: ALKALINE PHOSPHATASE 78 U/L (45-117); BILIRUBIN,TOTAL 0.4 mg/dL (0.2-1.0); TOTAL PROTEIN 7.7 g/dL (6.4-8.2)
[~2017-11-24] VITALS: Ht 152.4 cm; Wt 72.7 kg
[~2017-11-24 06:20] MED LIST changes: +CYCL-259 PO; +OMEP20TA62 PO; +SEVE800T8 PO; +TRAZ-136 PO; -TRAZ50TA18 PO
[2017-11-24] MEDS ORDERED: SODIUM CHLORIDE 0.9% 1,000 ML IV SCH (06:30)
[2017-11-24] MEDS ORDERED: SERT50TA5 PO (06:59)
[2017-11-24] MEDS ORDERED: CLOP75TA PO (06:59)
[2017-11-24] MEDS ORDERED: ESCI10TA PO (06:59)
[2017-11-24] MEDS ORDERED: SODIUM CHLORIDE 0.9% 1,000 ML IV ONE (07:00)
[2017-11-24 07:34] LABS: ALANINE AMINOTRANSFERASE 23 U/L (12-78); ALBUMIN 3.1 g/dL (3.4-5.0); ANION GAP 13 mmol/L (5-15); CALCIUM 8.1 mg/dL (8.5-10.1); CHLORIDE 101 mmol/L (98-107); CREATININE 6.34 mg/dL (0.55-1.02)
[2017-11-24] MEDS ORDERED: FENTANYL PF 250 MCG/5ML ONE (07:35)
[2017-11-24] MEDS ORDERED: MIDAZOLAM 1 MG/ML, 2ML ONE (07:35)
[2017-11-24 07:36] LABS: ALKALINE PHOSPHATASE 89 U/L (45-117); BILIRUBIN,TOTAL 0.3 mg/dL (0.2-1.0); TOTAL PROTEIN 7.1 g/dL (6.4-8.2)
[2017-11-24] MEDS ORDERED: ISOPROTERENOL 0.2MG/ML, 5ML ONE (08:38)
[2017-11-24] MEDS ORDERED: HEPARIN 1,000 UNITS/ML, 10ML ONE (08:38)
[2017-11-24] MEDS ORDERED: ACETAMINOPHEN 325 MG TABLET PO PRN ×2 (10:30→11:00)
[2017-11-24] MEDS ORDERED: PROMETHAZINE 25 MG SUPP PR PRN (11:00)
[2017-11-24] MEDS ORDERED: MIDAZOLAM 1 MG/ML, 2ML IV PRN (11:00)
[2017-11-24] MEDS ORDERED: EPHEDRINE 50 MG/ML, 1ML IM PRN (11:00)
[2017-11-24] MEDS ORDERED: MORPHINE SULFATE 4 MG/ML, 1ML IVPush PRN (11:00)
[2017-11-24] MEDS ORDERED: DIPHENHYDRAMINE 50 MG/ML, 1ML IVPush PRN (11:00)
[2017-11-24] MEDS ORDERED: FENTANYL PF 100 MCG/2ML IV PRN (11:00)
[2017-11-24] MEDS ORDERED: EPHEDRINE 50 MG/ML, 1ML IVPush PRN (11:00)
[2017-11-24] MEDS ORDERED: PROMETHAZINE 25 MG/ML, 1ML IV PRN (11:00)
[2017-11-24] MEDS ORDERED: ONDANSETRON ODT 8 MG PO PRN (11:00)
[2017-11-24] MEDS ORDERED: PROMETHAZINE 12.5 MG SUPP PR PRN (11:00)
[2017-11-24] MEDS ORDERED: HYDROcodone/APAP 7.5-325MG/15ML UDC PO PRN (11:00)
[2017-11-24] MEDS ORDERED: ALBUTEROL SULFATE 2.5 MG/3 ML NPPB ONE (15:00)
[2017-11-24] MEDS ORDERED: ROCURONIUM 10MG/ML,5ML ONE (15:42)
[2017-11-24] MEDS ORDERED: ONDANSETRON 2MG/ML, 2ML ONE (15:42)
[2017-11-24] MEDS ORDERED: DEXAMETHASONE 4 MG/ML, 1ML ONE (15:42)
[2017-11-24] MEDS ORDERED: PROPOFOL 10 MG/ML, 20ML ONE (15:42)
[2017-11-24] MEDS ORDERED: CYCLOBENZAPRINE HCL 10 MG PO SCH (16:00)
[2017-11-24] MEDS ORDERED: TEMPLATE NON-FORMULARY MED. (Gabapentin** 300 MG) PO SCH (16:00)
[2017-11-24] MEDS ORDERED: SEVELAMER CARBONATE 800MG TAB PO SCH (16:00)
[2017-11-24] MEDS ORDERED: TEMPLATE NON-FORMULARY MED. (Budesonide/Formoterol Fumarate (Symbicort 80-4.5 Mcg Inhaler) INH SCH (21:00)
[2017-11-24] MEDS ORDERED: TEMPLATE NON-FORMULARY MED. (Omeprazole Magnesium** (Prilosec Otc**) 20 MG) PO SCH (21:00)
[2017-11-24] MEDS ORDERED: TEMPLATE NON-FORMULARY MED. (Carvedilol** 6.25 MG) PO SCH (21:00)
[2017-11-24] MEDS ORDERED: ATORVASTATIN 80 MG TABLET PO SCH (21:00)
[2017-11-25] MEDS ORDERED: SERTRALINE HCL 50 MG PO SCH (09:00)
[2017-11-25] MEDS ORDERED: TEMPLATE NON-FORMULARY MED. (Escitalopram Oxalate** 10 MG) PO SCH (09:00)
[2017-11-25] MEDS ORDERED: TEMPLATE NON-FORMULARY MED. (Trazodone Hcl** 50 MG) PO SCH (09:00)
[2017-11-25] MEDS ORDERED: TEMPLATE NON-FORMULARY MED. (Clopidogrel Bisulfate** (Clopidogrel**) 75 MG) PO SCH ×2 (09:00)
[2017-11-25] MEDS ORDERED: AMIODARONE HCL 200 MG PO SCH (09:00)
== END 2017-11-24 15:30 | disposition home or self-care (01) ==
LOC: CACL 06:20
PROVIDERS: ATTEND Internal Medicine Cardiovascular Disease
DX: I48.92 Unspecified atrial flutter (principal); I13.2 Hypertensive heart and chronic kidney disease with heart failure and with stage 5 chronic kidney disease, or end stage renal disease; E11.22 Type 2 diabetes mellitus with diabetic chronic kidney disease; N18.6 End stage renal disease; E78.5 Hyperlipidemia, unspecified; I25.10 Atherosclerotic heart disease of native coronary artery without angina pectoris; I50.9 Heart failure, unspecified; J44.9 Chronic obstructive pulmonary disease, unspecified; F41.9 Anxiety disorder, unspecified; K21.9 Gastro-esophageal reflux disease without esophagitis; Z95.1 Presence of aortocoronary bypass graft; Z72.0 Tobacco use; Z87.891 Personal history of nicotine dependence; Z98.890 Other specified postprocedural states; Z79.01 Long term (current) use of anticoagulants; Z79.891 Long term (current) use of opiate analgesic; Z79.899 Other long term (current) drug therapy; Z87.39 Personal history of other diseases of the musculoskeletal system and connective tissue; Z79.4 Long term (current) use of insulin; Z87.440 Personal history of urinary (tract) infections
CPT/HCPCS: 36415; 71046; 80053; 85025; 93312; 93321; 93325; 93613; 93621; 93653; 94640; C1730; C1731; C1766; C1894; J1100; J1644; J2250; J2405; J2704; J3010; J7613

== ENCOUNTER 2017-12-06 10:11 | Emergency (ER) | payer MEDICARE ==
[~2017-12-06] VITALS: Ht 149.9 cm; Wt 74.9 kg
[~2017-12-06 10:11] MED LIST changes: +ESCI10TA PO; +SERT50TA5 PO
[2017-12-06 12:14] VITALS: BP 125/78
== END 2017-12-06 12:20 | disposition home or self-care (01) ==
LOC: ED 11:37
DX: S70.02XA Contusion of left hip, initial encounter (principal); S70.12XA Contusion of left thigh, initial encounter; S09.90XA Unspecified injury of head, initial encounter; W18.39XA Other fall on same level, initial encounter; Y93.89 Activity, other specified; Y92.89 Other specified places as the place of occurrence of the external cause; Y99.8 Other external cause status
CPT/HCPCS: 70450; 99284

== ENCOUNTER 2018-05-24 09:28 | Inpatient (IN) | payer MEDICARE ==
[~2018-05-24] VITALS: Ht 149.9 cm; Wt 82.5 kg
[~2018-05-24 09:28] MED LIST changes: -ASPI-621 PO; +ASPI81TA45 PO; +DEXT-230 PO; -DEXT4TAB PO; -PROC5TAB PO; +PROC5TAB2 PO; +SERT50TA28 PO; -SERT50TA5 PO; -TRAZ-136 PO; +TRAZ50TA66 PO
--- NOTE | 2018-05-24 11:02 | NUR ---
ON MONITOR, IV DONE, BLOOD SENT
[2018-05-24 11:10] LABS: BASOPHILS # (AUTO) 0.06 x10^3/uL (0-0.1); BASOPHILS % (AUTO) 0 % (0-1); EOSINOPHILS # (AUTO) 0.03 x10^3/uL (0-0.4); EOSINOPHILS % (AUTO) 0 % (1-7); LYMPHOCYTES # (AUTO) 1.26 x10^3/uL (1-3.4); LYMPHOCYTES % (AUTO) 9 % (22-44); MD NO; MEAN CORPUSCULAR HEMOGLOBIN 30.8 pg (27.0-34.8); MEAN CORPUSCULAR HGB CONC 32.4 g/dL (32.4-35.8); MEAN PLATELET VOLUME 7.5 fL (7.4-10.4); MONOCYTES # (AUTO) 1.08 x10^3/uL (0.2-0.8); MONOCYTES % (AUTO) 8 % (2-9); NEUTROPHILS # (AUTO) 11.11 x10^3/uL (1.8-6.8); NEUTROPHILS % (AUTO) 82 % (42-75); PLATELET COUNT 335 x10^3/uL (130-400); RED BLOOD COUNT 4.07 x10^6/uL (3.82-5.3); RED CELL DISTRIBUTION WIDTH 16.9 % (9.6-15.2)
[2018-05-24 11:23] LABS: ALANINE AMINOTRANSFERASE 19 U/L (12-78); ALBUMIN 3.4 g/dL (3.4-5.0); ANION GAP 8 mmol/L (5-15); CALCIUM 9.8 mg/dL (8.5-10.1); CHLORIDE 96 mmol/L (98-107)
[2018-05-24 11:25] LABS: ALKALINE PHOSPHATASE 80 U/L (45-117); BILIRUBIN,TOTAL 0.6 mg/dL (0.2-1.0); TOTAL PROTEIN 7.9 g/dL (6.4-8.2)
[2018-05-24] MEDS ORDERED: OMNIPAQUE 350 MG/ML, 100ML BOTTLE ONE (12:00)
--- NOTE | 2018-05-24 12:11 | NUR ---
BACK FROM CT
[2018-05-24] MEDS ORDERED: METRONIDAZOLE PMX 500MG/100ML 100 ML IVPB ONE (13:30)
[2018-05-24] MEDS ORDERED: CEFOTETAN PMX 1GM/50ML 50 ML IV ONE (13:30)
[2018-05-24] MEDS ORDERED: METRONIDAZOLE PMX 500MG/100ML 100 ML ONE (14:10)
[2018-05-24] MEDS ORDERED: CEFOTETAN PMX 1GM/50ML 50 ML ONE (14:10)
--- NOTE | 2018-05-24 14:11 | NUR ---
ANTIBIOTICS SENT WITH PT TO PT'S FLOOR ROOM, DID NOT HAVE ENOUGHTIMETO HANG PRIORTO TRANSPORT
[2018-05-24 14:20] VITALS: BP 154/81
[2018-05-24] MEDS ORDERED: LABETALOL 5MG/ML, 20ML IVPush PRN ×2 (15:00→16:30)
[2018-05-24] MEDS ORDERED: hydrALAzine 20 MG/ML, 1ML IVPush PRN (15:00)
[2018-05-24] MEDS ORDERED: ONDANSETRON ODT 4 MG PO PRN (15:00)
[2018-05-24] MEDS ORDERED: POLYETHYLENE GLYCOL 17 GM PACKET PO PRN (15:00)
[2018-05-24] MEDS ORDERED: HYDROcodone/APAP 5/325 TABLET PO PRN (15:00)
[2018-05-24] MEDS ORDERED: ONDANSETRON 2MG/ML, 2ML IVPush PRN (15:00)
[2018-05-24] MEDS ORDERED: HEPARIN 5,000 UNITS/ML, 1ML SQ SCH (15:00)
[2018-05-24] MEDS ORDERED: ACETAMINOPHEN 325 MG TABLET PO PRN (15:00)
[2018-05-24] MEDS ORDERED: CEFAZOLIN 1,000 MG IM SCH (15:30)
[2018-05-24] MEDS ORDERED: CEFAZOLIN PMX 1GM/50ML 50 ML IV SCH (16:30)
[2018-05-24] MEDS: ALBUTEROL SULFATE 2.5 MG/3 ML NPPB SCH ×2 (16:30→22:30)
[2018-05-24] MEDS: SEVELAMER CARBONATE 800MG TAB PO SCH ×3 (20:08→23:20)
[2018-05-24] MEDS: OMEPRAZOLE 20 MG CAPSULE.DR PO SCH (20:09)
[2018-05-24] MEDS: GABAPENTIN 300 MG CAPSULE PO SCH ×2 (20:09→20:29)
[2018-05-24 20:23] VITALS: BP 114/70
[2018-05-24] MEDS: CARVEDILOL 6.25 MG TABLET PO SCH (20:29)
[2018-05-24] MEDS: BUDESONIDE 0.5 MG/2 ML INHA NPPB SCH (21:00)
[2018-05-24] MEDS ORDERED: TEMPLATE NON-FORMULARY MED. (Budesonide/Formoterol Fumarate (Symbicort 80-4.5 Mcg Inhaler) INH SCH (21:00)
[2018-05-24] MEDS ORDERED: ATORVASTATIN 80 MG TABLET PO SCH (21:00)
[2018-05-24] MEDS: METRONIDAZOLE PMX 500MG/100ML 100 ML IV SCH (22:30)
[2018-05-25 00:04] VITALS: BP 118/59
[2018-05-25] MEDS: ALBUTEROL SULFATE 2.5 MG/3 ML NPPB SCH ×2 (04:30→10:30)
[2018-05-25 05:43] LABS: BASOPHILS # (AUTO) 0.04 x10^3/uL (0-0.1); BASOPHILS % (AUTO) 0 % (0-1); EOSINOPHILS # (AUTO) 0.06 x10^3/uL (0-0.4); EOSINOPHILS % (AUTO) 1 % (1-7); LYMPHOCYTES # (AUTO) 1.38 x10^3/uL (1-3.4); LYMPHOCYTES % (AUTO) 11 % (22-44); MD NO; MEAN CORPUSCULAR HEMOGLOBIN 31.8 pg (27.0-34.8); MEAN CORPUSCULAR HGB CONC 33.8 g/dL (32.4-35.8); MEAN CORPUSCULAR VOLUME 94.1 fL (80-100); MEAN PLATELET VOLUME 7.6 fL (7.4-10.4); MONOCYTES # (AUTO) 1.06 x10^3/uL (0.2-0.8); MONOCYTES % (AUTO) 8 % (2-9); NEUTROPHILS # (AUTO) 10.59 x10^3/uL (1.8-6.8); NEUTROPHILS % (AUTO) 81 % (42-75); PLATELET COUNT 277 x10^3/uL (130-400); RED BLOOD COUNT 3.35 x10^6/uL (3.82-5.3); RED CELL DISTRIBUTION WIDTH 16.9 % (9.6-15.2)
[2018-05-25 05:52] LABS: ANION GAP 10 mmol/L (5-15); CHLORIDE 95 mmol/L (98-107)
[2018-05-25 05:54] LABS: CREATININE 6.27 mg/dL (0.55-1.02)
[2018-05-25] MEDS: METRONIDAZOLE PMX 500MG/100ML 100 ML IV SCH (06:42)
[2018-05-25] MEDS: SEVELAMER CARBONATE 800MG TAB PO SCH ×2 (06:42→12:36)
[2018-05-25] MEDS: OMEPRAZOLE 20 MG CAPSULE.DR PO SCH (06:42)
[2018-05-25 07:27] VITALS: BP 120/61
[2018-05-25] MEDS: GABAPENTIN 300 MG CAPSULE PO SCH (07:55)
[2018-05-25] MEDS: CARVEDILOL 6.25 MG TABLET PO SCH (07:55)
[2018-05-25] MEDS ORDERED: AMIODARONE 200 MG TABLET PO SCH (09:00)
[2018-05-25] MEDS ORDERED: TRAZODONE 50MG TABLET PO SCH (09:00)
[2018-05-25] MEDS: BUDESONIDE 0.5 MG/2 ML INHA NPPB SCH (09:00)
[2018-05-25] MEDS ORDERED: CLOPIDOGREL 75 MG TABLET PO SCH (09:00)
[2018-05-25] MEDS ORDERED: SERTRALINE 50MG TABLET PO SCH (09:00)
[2018-05-25] MEDS ORDERED: CIPR250T2 PO (12:38)
[2018-05-25] MEDS ORDERED: METR500T PO (12:38)
[2018-05-25 13:07] VITALS: BP 90/54
== END 2018-05-25 15:13 | disposition home or self-care (01) | DRG 377 ==
LOC: ED 12:15 → 4NOR 13:30 → DCLOUNGE 05-25 14:50
PROVIDERS: ADMIT Family Medicine; ATTEND Family Medicine
DX: K57.33 Diverticulitis of large intestine without perforation or abscess with bleeding (principal); N18.6 End stage renal disease; I13.2 Hypertensive heart and chronic kidney disease with heart failure and with stage 5 chronic kidney disease, or end stage renal disease; I48.92 Unspecified atrial flutter; E11.22 Type 2 diabetes mellitus with diabetic chronic kidney disease; E78.5 Hyperlipidemia, unspecified; G89.29 Other chronic pain; I25.10 Atherosclerotic heart disease of native coronary artery without angina pectoris; I50.9 Heart failure, unspecified; Z96.653 Presence of artificial knee joint, bilateral; F41.9 Anxiety disorder, unspecified; M54.9 Dorsalgia, unspecified; J44.9 Chronic obstructive pulmonary disease, unspecified; K64.9 Unspecified hemorrhoids; K80.70 Calculus of gallbladder and bile duct without cholecystitis without obstruction; Z66 Do not resuscitate; Z80.51 Family history of malignant neoplasm of kidney; Z99.2 Dependence on renal dialysis; Z80.52 Family history of malignant neoplasm of bladder; Z80.8 Family history of malignant neoplasm of other organs or systems; Z82.49 Family history of ischemic heart disease and other diseases of the circulatory system; Z87.891 Personal history of nicotine dependence; Z90.49 Acquired absence of other specified parts of digestive tract; Z90.710 Acquired absence of both cervix and uterus; I25.2 Old myocardial infarction; Z95.1 Presence of aortocoronary bypass graft; Z79.899 Other long term (current) drug therapy
CPT/HCPCS: 36415; 74177; 80048; 80053; 83735; 84100; 85025; 99285; G0378; J0690; Q9967; J3490

== ENCOUNTER 2019-03-02 07:40 | Inpatient (IN) | payer MEDICARE ==
[~2019-03-02] VITALS: Ht 149.9 cm; Wt 87.8 kg
[~2019-03-02 07:40] MED LIST changes: -ACET-1757 PO; +ACET-2065 PO; -BISA10SU2 PR; +BISA10SU4 PR; +CIPR250T2 PO; +METR500T PO
--- NOTE | 2019-03-02 08:06 | NUR ---
PT AMBULATED WITH A STEADY GAIT TO ROOM. DAUGHTER AT BEDSIDE. CHANGED INTO [facility]. PT BROUGHT A BM THAT SHE HAD WITH HER PRIOR TO ARRIVAL, MINUTES AGO.-
--- NOTE | 2019-03-02 08:33 | NUR ---
PT STATES PROVIDER TOOK A SAMPLE OF HER STOOL AND STATED SHE WILL DO FOLLOW UP SCANS. PT REQUESTING PAIN MEDS FOR 10/28 LEFT QUAD PAIN.
[2019-03-02] MEDS ORDERED: ONDANSETRON 2MG/ML, 2ML ONE (08:43)
[2019-03-02] MEDS ORDERED: MORPHINE SULFATE 4 MG/ML, 1ML ONE (08:44)
--- NOTE | 2019-03-02 08:49 | NUR ---
PT AMBULATING WITH A STEADY GAIT TO THE BATHROOM
[2019-03-02] MEDS ORDERED: SODIUM CHLORIDE FLUSH 10ML SYR IVF ONE (09:00)
[2019-03-02] MEDS ORDERED: ONDANSETRON 2MG/ML, 2ML IVPush ONE (09:00)
[2019-03-02] MEDS ORDERED: MORPHINE SULFATE 4 MG/ML, 1ML IVPush PRN (09:00)
--- NOTE | 2019-03-02 09:06 | NUR ---
Pt medicated as per emar for 10/28 LLQ pain. IV est, labs drawn & sent. Pt placed on continuous pulse oximetry & q30min BP cycle. SR up x 2, call light within reach, daughter @ BS. POC for CT ABD after labs. Pt aware.
[2019-03-02 09:09] LABS: MEAN CORPUSCULAR HEMOGLOBIN 30.5 pg (27.0-34.8); MEAN CORPUSCULAR HGB CONC 32.5 g/dL (32.4-35.8); MEAN PLATELET VOLUME 7.3 fL (7.4-10.4); PLATELET COUNT 492 x10^3/uL (130-400); RED BLOOD COUNT 3.61 x10^6/uL (3.82-5.3); RED CELL DISTRIBUTION WIDTH 17.1 % (9.6-15.2)
--- NOTE | 2019-03-02 09:12 | NUR ---
DR. BELLO AT BEDSIDE.
--- NOTE | 2019-03-02 09:13 | NUR ---
89% spo2 s/p medical office technologist. Placed on 2L via NC. Sats now 95%.
[2019-03-02 09:21] LABS: ALBUMIN 2.8 g/dL (3.4-5.0); ANION GAP 11 mmol/L (5-15); CALCIUM 8.9 mg/dL (8.5-10.1); CHLORIDE 97 mmol/L (98-107)
[2019-03-02 09:24] LABS: ALANINE AMINOTRANSFERASE 18 U/L (12-78); ALKALINE PHOSPHATASE 92 U/L (45-117); BILIRUBIN,TOTAL 0.4 mg/dL (0.2-1.0); CREATININE 7.03 mg/dL (0.55-1.02); TOTAL PROTEIN 7.6 g/dL (6.4-8.2)
[2019-03-02 09:26] LABS: MD YES
[2019-03-02 09:27] LABS: BAND#(MANUAL) 0.37 x10^3/uL; BANDS%(MANUAL) 2 % (0-7); LYMPH#(MANUAL) 2.02 x10^3/uL (1-3.4); LYMPHS% (MANUAL) 11 % (22-44); MONOS#(MANUAL) 0.74 x10^3/uL (0.3-2.7); MONOS% (MANUAL) 4 % (2-9); MYELOCYTES# (MANUAL) 0.18 x10^3/uL (0-0); MYELOCYTES% (MANUAL) 1 % (0-0); SEG#(MANUAL) 15.09 x10^3/uL (1.8-6.8); SEGS% (MANUAL) 82 % (42-75)
[2019-03-02 09:28] LABS: <PLATELET ESTIMATE> INCREASED; <PLT MORPHOLOGY> NORMAL PLT MORPH; <RBC MORPHOLOGY> NORMAL
--- NOTE | 2019-03-02 09:56 | NUR ---
report from PEDRO PABLO Brown to assume care at this time.
[2019-03-02] MEDS ORDERED: inhaler (10:04)
--- NOTE | 2019-03-02 10:05 | NUR ---
pt resting in room. vss. no needs expressed. call light within reach. all results back at this time. chart up for recheck.
[2019-03-02] MEDS ORDERED: CEFOTETAN PMX 1GM/50ML 50 ML ONE (10:24)
[2019-03-02] MEDS ORDERED: METRONIDAZOLE PMX 500MG/100ML 100 ML ONE (10:24)
[2019-03-02] MEDS ORDERED: METRONIDAZOLE PMX 500MG/100ML 100 ML IVPB ONE (10:30)
[2019-03-02] MEDS ORDERED: CEFOTETAN PMX 1GM/50ML 50 ML IVPB ONE (10:30)
--- NOTE | 2019-03-02 11:05 | NUR ---
report to PEDRO PABLO Hopkins. pt ready for transport.
[2019-03-02] MEDS ORDERED: ACETAMINOPHEN 325 MG TABLET PO PRN (11:30)
--- NOTE | 2019-03-02 11:32 | NUR ---
GHISLAINE GONZALEZIT TO [facility].
--- NOTE | 2019-03-02 11:40 | NUR ---
report to PEDRO PABLO Giraldo. pt ready for transport.
--- NOTE | 2019-03-02 11:57 | NUR ---
pt to rr with steady gait. family at side for sba.
[2019-03-02] MEDS ORDERED: GOLYTELY 4,000ML ORAL.SOL PO ONE ×2 (12:00→22:30)
[2019-03-02 12:50] VITALS: BP 111/71
[2019-03-02] MEDS: METRONIDAZOLE PMX 500MG/100ML 100 ML IV SCH ×2 (13:47→21:44)
[2019-03-02] MEDS: CEFTRIAXONE PMX 2GM/50ML 50 ML IV SCH (15:20)
[2019-03-02] MEDS: SEVELAMER CARBONATE 800MG TAB PO SCH ×2 (16:00→21:45)
[2019-03-02] MEDS ORDERED: ALBU18HF INH (16:00)
[2019-03-02] MEDS: GABAPENTIN 300 MG CAPSULE PO SCH ×2 (16:37→21:45)
[2019-03-02 19:48] VITALS: BP 120/58
[2019-03-02] MEDS: ATORVASTATIN 80 MG TABLET PO SCH (21:45)
[2019-03-02] MEDS: CARVEDILOL 6.25 MG TABLET PO SCH (21:45)
[2019-03-02] MEDS: OMEPRAZOLE 20 MG CAPSULE.DR PO SCH (21:45)
[2019-03-03 00:49] VITALS: BP 104/53
[2019-03-03 00:51] LABS: CLOSTRIDIUM DIFFICILE ANTIGEN POSITIVE; CLOSTRIDIUM DIFFICILE TOXIN NEGATIVE (Negative)
[2019-03-03 05:17] LABS: BASOPHILS # (AUTO) 0.03 x10^3/uL (0-0.1); BASOPHILS % (AUTO) 0 % (0-1); EOSINOPHILS # (AUTO) 0.22 x10^3/uL (0-0.4); EOSINOPHILS % (AUTO) 2 % (1-7); LYMPHOCYTES # (AUTO) 1.32 x10^3/uL (1-3.4); LYMPHOCYTES % (AUTO) 14 % (22-44); MD NO; MEAN CORPUSCULAR HEMOGLOBIN 31.2 pg (27.0-34.8); MEAN CORPUSCULAR HGB CONC 32.6 g/dL (32.4-35.8); MEAN CORPUSCULAR VOLUME 95.6 fL (80-100); MEAN PLATELET VOLUME 7.4 fL (7.4-10.4); MONOCYTES # (AUTO) 0.54 x10^3/uL (0.2-0.8); MONOCYTES % (AUTO) 6 % (2-9); NEUTROPHILS # (AUTO) 7.25 x10^3/uL (1.8-6.8); NEUTROPHILS % (AUTO) 77 % (42-75); PLATELET COUNT 376 x10^3/uL (130-400); RED BLOOD COUNT 3.16 x10^6/uL (3.82-5.3); RED CELL DISTRIBUTION WIDTH 17.3 % (9.6-15.2)
[2019-03-03 05:26] LABS: ANION GAP 10 mmol/L (5-15); CHLORIDE 98 mmol/L (98-107)
[2019-03-03 05:28] LABS: CALCIUM 7.8 mg/dL (8.5-10.1); CREATININE 4.06 mg/dL (0.55-1.02)
[2019-03-03] MEDS: METRONIDAZOLE PMX 500MG/100ML 100 ML IV SCH ×3 (05:29→21:23)
[2019-03-03 07:30] VITALS: BP 117/58
[2019-03-03] MEDS: CARVEDILOL 6.25 MG TABLET PO SCH ×2 (08:25→21:24)
[2019-03-03] MEDS: GABAPENTIN 300 MG CAPSULE PO SCH ×3 (08:25→21:24)
[2019-03-03] MEDS: OMEPRAZOLE 20 MG CAPSULE.DR PO SCH ×2 (08:26→21:24)
[2019-03-03] MEDS: SERTRALINE 50MG TABLET PO SCH (08:26)
[2019-03-03] MEDS: SEVELAMER CARBONATE 800MG TAB PO SCH ×3 (08:28→21:23)
[2019-03-03] MEDS: CALCITRIOL 0.25 MCG CAPSULE PO SCH (11:00)
[2019-03-03] MEDS: CEFTRIAXONE PMX 2GM/50ML 50 ML IV SCH (14:20)
[2019-03-03 14:33] VITALS: BP 137/94
[2019-03-03 19:49] VITALS: BP 115/62
[2019-03-03] MEDS: ATORVASTATIN 80 MG TABLET PO SCH (21:24)
[2019-03-04 01:06] VITALS: BP 112/59
[2019-03-04] MEDS: METRONIDAZOLE PMX 500MG/100ML 100 ML IV SCH ×2 (05:11→13:45)
[2019-03-04 06:26] LABS: ANION GAP 10 mmol/L (5-15); CALCIUM 7.9 mg/dL (8.5-10.1); CHLORIDE 102 mmol/L (98-107); CREATININE 5.58 mg/dL (0.55-1.02)
[2019-03-04 07:05] VITALS: BP 125/68
[2019-03-04] MEDS: CALCITRIOL 0.25 MCG CAPSULE PO SCH (08:03)
[2019-03-04] MEDS: SEVELAMER CARBONATE 800MG TAB PO SCH ×2 (08:03→13:44)
[2019-03-04] MEDS: OMEPRAZOLE 20 MG CAPSULE.DR PO SCH (08:03)
[2019-03-04] MEDS: SERTRALINE 50MG TABLET PO SCH (08:04)
[2019-03-04] MEDS ORDERED: AMOX1TAB61 PO (11:20)
[2019-03-04] MEDS ORDERED: METR-90 PO (11:20)
[2019-03-04 13:30] VITALS: BP 130/84
[2019-03-04] MEDS: GABAPENTIN 300 MG CAPSULE PO SCH (13:44)
[2019-03-04] MEDS: CARVEDILOL 6.25 MG TABLET PO SCH (13:44)
== END 2019-03-04 16:42 | disposition home or self-care (01) | DRG 377 ==
LOC: ED 09:28 → EDIP 10:10 → 4EST 12:27
PROVIDERS: ADMIT Family Medicine; ATTEND Family Medicine
PROC: 5A1D70Z Performance of Urinary Filtration, Intermittent, Less than 6 Hours Per Day (ICD-10-PCS; principal; 2019-03-02)
PROC: 5A1D70Z Performance of Urinary Filtration, Intermittent, Less than 6 Hours Per Day (ICD-10-PCS; 2019-03-04)
DX: K57.33 Diverticulitis of large intestine without perforation or abscess with bleeding (principal); N18.6 End stage renal disease; I13.2 Hypertensive heart and chronic kidney disease with heart failure and with stage 5 chronic kidney disease, or end stage renal disease; I50.22 Chronic systolic (congestive) heart failure; Z95.1 Presence of aortocoronary bypass graft; D63.1 Anemia in chronic kidney disease; E11.22 Type 2 diabetes mellitus with diabetic chronic kidney disease; E11.40 Type 2 diabetes mellitus with diabetic neuropathy, unspecified; E11.51 Type 2 diabetes mellitus with diabetic peripheral angiopathy without gangrene; E78.5 Hyperlipidemia, unspecified; F32.9 Major depressive disorder, single episode, unspecified; I25.10 Atherosclerotic heart disease of native coronary artery without angina pectoris; I25.2 Old myocardial infarction; I48.0 Paroxysmal atrial fibrillation; J44.9 Chronic obstructive pulmonary disease, unspecified; K21.9 Gastro-esophageal reflux disease without esophagitis; K59.00 Constipation, unspecified; Z79.4 Long term (current) use of insulin; Z82.49 Family history of ischemic heart disease and other diseases of the circulatory system; Z86.73 Personal history of transient ischemic attack (TIA), and cerebral infarction without residual deficits; Z87.19 Personal history of other diseases of the digestive system; Z87.891 Personal history of nicotine dependence; Z90.711 Acquired absence of uterus with remaining cervical stump; Z99.2 Dependence on renal dialysis
CPT/HCPCS: 36415; 74176; 80048; 80053; 83735; 84100; 85014; 85018; 85025; 86706; 86803; 87324; 87340; 87493; 90935; 96365; 96375; G0378; J0696; J2405; J2270; J3490

== ENCOUNTER 2019-03-30 09:54 | Inpatient (IN) | payer MEDICARE ==
[~2019-03-30] VITALS: Ht 149.9 cm; Wt 89.8 kg
[~2019-03-30 09:54] MED LIST changes: +ALBU18HF INH; +AMOX1TAB61 PO; +METR-90 PO; +inhaler
--- NOTE | 2019-03-30 10:12 | NUR ---
PT TO ED FOR BLOODY STOOL X2 DAYS. PT DENIES CRAMPS, N/V/D, FEVER, CHILLS OR ABX USE. PT RECENTLY DIAGNOSED AND ADMITTED FOR DIVERTICULITIS. PT CONNECTED TO ALL MONITORS. VSS. RESIDENT TO BS FOR ASSESSMENT. AWAITING ORDERS.
--- NOTE | 2019-03-30 10:22 | NUR ---
RECTAL EXAM PERFORMED BY RESIDENT AT THIS TIME WITH THIS RN PRESENT [employer] DRILL OPERATOR.
--- NOTE | 2019-03-30 11:17 | NUR ---
pt resting in room. vss. piv established and labs drawn. stool and blood walked to lab. no needs expressed. call light within reach. awaiting ct and results.
[2019-03-30 11:26] LABS: BASOPHILS # (AUTO) 0.02 x10^3/uL (0-0.1); BASOPHILS % (AUTO) 0 % (0-1); EOSINOPHILS # (AUTO) 0.08 x10^3/uL (0-0.4); EOSINOPHILS % (AUTO) 1 % (1-7); LYMPHOCYTES % (AUTO) 15 % (22-44); MD NO; MEAN CORPUSCULAR HEMOGLOBIN 30.5 pg (27.0-34.8); MEAN CORPUSCULAR HGB CONC 32.1 g/dL (32.4-35.8); MEAN PLATELET VOLUME 7.7 fL (7.4-10.4); MONOCYTES # (AUTO) 0.35 x10^3/uL (0.2-0.8); MONOCYTES % (AUTO) 6 % (2-9); NEUTROPHILS # (AUTO) 4.66 x10^3/uL (1.8-6.8); NEUTROPHILS % (AUTO) 78 % (42-75); PLATELET COUNT 235 x10^3/uL (130-400); RED BLOOD COUNT 3.09 x10^6/uL (3.82-5.3); RED CELL DISTRIBUTION WIDTH 18.4 % (9.6-15.2)
[2019-03-30 11:31] LABS: ANION GAP 9 mmol/L (5-15); CHLORIDE 100 mmol/L (98-107)
[2019-03-30 11:37] LABS: ALANINE AMINOTRANSFERASE 19 U/L (12-78); ALKALINE PHOSPHATASE 74 U/L (45-117); BILIRUBIN,TOTAL 0.4 mg/dL (0.2-1.0); CREATININE 6.11 mg/dL (0.55-1.02); TOTAL PROTEIN 7.1 g/dL (6.4-8.2)
--- NOTE | 2019-03-30 11:59 | NUR ---
PT RESTING IN ROOM. VSS. NO NEEDS EXPRESSED. PT TO CT AT THIS TIME.
[2019-03-30 12:02] LABS: CLOSTRIDIUM DIFFICILE ANTIGEN POSITIVE; CLOSTRIDIUM DIFFICILE TOXIN NEGATIVE (Negative)
[2019-03-30] MEDS ORDERED: OMNIPAQUE 350 MG/ML, 100ML BOTTLE ONE (12:24)
[2019-03-30] MEDS ORDERED: DIPHENHYDRAMINE 50 MG/ML, 1ML IVPush ONE (12:30)
[2019-03-30] MEDS ORDERED: POTASSIUM CHLORIDE 40 MEQ in SODIUM CHLORIDE 0.9% 500 ML IV ONE (12:30)
[2019-03-30] MEDS ORDERED: DIPHENHYDRAMINE 50 MG/ML, 1ML ONE (12:34)
--- NOTE | 2019-03-30 12:46 | NUR ---
PT BACK FROM CT. PER COST SPECIALIST, AFTER IV CONTRAST, PT REPORTED ITCHINESS TO FACE AND EYES. NO AIRWAY COMPROMISE OR HIVES NOTED. DR. CULP NOTIFIED AND TO BS FOR ASSESSMENTS. ORDERS RECEIVED. MEDICATIONS ADMINISTERED. IV K STARTED. 2LNC PLACED FOR RA O2 SAT 88% WHILE PT IS RESTING. VSS ON 2LNC. NO NEEDS EXPRESSED. CALL LIGHT WITHIN REACH. AWAITING FURTHER ORDERS.
[2019-03-30] MEDS ORDERED: POLYETHYLENE GLYCOL 17 GM PACKET PO PRN (14:00)
[2019-03-30] MEDS ORDERED: hydrALAzine 20 MG/ML, 1ML IVPush PRN (14:00)
[2019-03-30] MEDS ORDERED: GUAIFENESIN/DM 200-20MG, 10ML UDC PO PRN (14:00)
[2019-03-30] MEDS ORDERED: ACETAMINOPHEN 325 MG TABLET PO PRN (14:00)
[2019-03-30] MEDS ORDERED: DOCUSATE 100 MG CAPSULE PO PRN (14:00)
[2019-03-30] MEDS ORDERED: ENALAPRILAT 1.25 MG/ML, 2ML IVPush PRN (14:00)
[2019-03-30] MEDS ORDERED: PROMETHAZINE 25 MG/ML, 1ML IM PRN (14:00)
[2019-03-30] MEDS ORDERED: HEPARIN 5,000 UNITS/ML, 1ML SQ SCH ×2 (14:00→20:00)
[2019-03-30] MEDS ORDERED: BISACODYL 10 MG SUPP PR PRN (14:00)
[2019-03-30] MEDS ORDERED: ONDANSETRON ODT 4 MG PO PRN (14:00)
[2019-03-30] MEDS ORDERED: ONDANSETRON 2MG/ML, 2ML IVPush PRN (14:00)
--- NOTE | 2019-03-30 14:09 | NUR ---
REPORT RECEIVED FROM PEDRO PABLO ANDERSON. PLAN OF CARE DISCUSSED
--- NOTE | 2019-03-30 14:16 | NUR ---
REPORT GIVEN TO PEDRO PABLO GALVAN. PLAN OF CARE DISCUSSED.
[2019-03-30] MEDS ORDERED: ALBUTEROL SULFATE 90 MCG INH PRN (14:30)
[2019-03-30 15:01] LABS: INTERNATIONAL NORMALIZED RATIO 0.9 (0.93-1.1); PROTHROMBIN TIME 9.5 Seconds (9.6-11.5)
[2019-03-30 16:12] LABS: HEMOGLOBIN A1C 5.4 % (4.2-6.3)
[2019-03-30] MEDS ORDERED: PLEASE ENTER WEIGHT MC SCH (17:00)
[2019-03-30] MEDS: CEFTRIAXONE PMX 2GM/50ML 50 ML IV SCH (17:36)
[2019-03-30] MEDS: SEVELAMER CARBONATE 800MG TAB PO SCH ×2 (17:50→21:13)
[2019-03-30] MEDS: GABAPENTIN 100 MG CAPSULE PO SCH ×2 (18:27→21:13)
[2019-03-30 18:39] LABS: ANION GAP 10 mmol/L (5-15); CALCIUM 8.4 mg/dL (8.5-10.1); CHLORIDE 103 mmol/L (98-107); CREATININE 6.26 mg/dL (0.55-1.02)
[2019-03-30] MEDS: METRONIDAZOLE PMX 500MG/100ML 100 ML IV SCH (18:53)
[2019-03-30 20:40] VITALS: BP 99/49
[2019-03-30] MEDS: (Budesonide/Formoterol Fumarate (Symbicort 80-4.5 Mcg Inhaler) INH SCH (21:00)
[2019-03-30] MEDS ORDERED: TEMPLATE NON-FORMULARY MED. (Omeprazole Magnesium** (Prilosec Otc**) 20 MG) PO SCH (21:00)
[2019-03-30 21:13] VITALS: BP 102/52
[2019-03-30] MEDS: ATORVASTATIN 80 MG TABLET PO SCH (21:13)
[2019-03-30] MEDS: CARVEDILOL 6.25 MG TABLET PO SCH (21:13)
[2019-03-31] MEDS: METRONIDAZOLE PMX 500MG/100ML 100 ML IV SCH ×4 (00:47→17:55)
[2019-03-31 00:52] VITALS: BP 105/54
[2019-03-31] MEDS ORDERED: GLUCAGON 1 MG IM PRN (05:00)
[2019-03-31] MEDS ORDERED: DEXTROSE 50%, 50ML SYRINGE IVPush PRN (05:00)
[2019-03-31 05:40] LABS: ALBUMIN 2.5 g/dL (3.4-5.0); ANION GAP 8 mmol/L (5-15); CALCIUM 8.1 mg/dL (8.5-10.1); CHLORIDE 103 mmol/L (98-107)
[2019-03-31 05:43] LABS: BASOPHILS # (AUTO) 0.04 x10^3/uL (0-0.1); BASOPHILS % (AUTO) 1 % (0-1); EOSINOPHILS # (AUTO) 0.21 x10^3/uL (0-0.4); EOSINOPHILS % (AUTO) 3 % (1-7); LYMPHOCYTES # (AUTO) 1.13 x10^3/uL (1-3.4); LYMPHOCYTES % (AUTO) 18 % (22-44); MD NO; MEAN CORPUSCULAR HEMOGLOBIN 31.3 pg (27.0-34.8); MEAN CORPUSCULAR HGB CONC 32.3 g/dL (32.4-35.8); MEAN CORPUSCULAR VOLUME 96.8 fL (80-100); MEAN PLATELET VOLUME 7.9 fL (7.4-10.4); MONOCYTES # (AUTO) 0.64 x10^3/uL (0.2-0.8); MONOCYTES % (AUTO) 10 % (2-9); NEUTROPHILS % (AUTO) 68 % (42-75); PLATELET COUNT 219 x10^3/uL (130-400); RED BLOOD COUNT 2.67 x10^6/uL (3.82-5.3); RED CELL DISTRIBUTION WIDTH 18.4 % (9.6-15.2)
[2019-03-31 05:44] LABS: ALANINE AMINOTRANSFERASE 14 U/L (12-78); ALKALINE PHOSPHATASE 62 U/L (45-117); BILIRUBIN,TOTAL 0.3 mg/dL (0.2-1.0); CHOL/HDL RATIO 2.6; CHOLESTEROL, TOTAL 125 mg/dL (140-239); HDL CHOL % 38 % (28-40); HDL CHOLESTEROL (DIRECT) 48 mg/dL (40-60); LDL CHOLESTEROL,CALCULATED 48 mg/dL (54-169); TOTAL PROTEIN 5.9 g/dL (6.4-8.2); TRIGLYCERIDES 144 mg/dL (50-200); VLDL CHOLESTEROL 29 mg/dL (0-25)
[2019-03-31] MEDS: SEVELAMER CARBONATE 800MG TAB PO SCH ×3 (07:46→20:29)
[2019-03-31 07:53] VITALS: BP 98/53
[2019-03-31] MEDS: GABAPENTIN 100 MG CAPSULE PO SCH ×3 (08:00→20:27)
[2019-03-31] MEDS: SERTRALINE 50MG TABLET PO SCH (08:00)
[2019-03-31] MEDS: CARVEDILOL 6.25 MG TABLET PO SCH ×2 (08:00→22:13)
[2019-03-31] MEDS: PANTOPROZOLE 40MG TABLET PO SCH ×2 (08:00→16:57)
[2019-03-31] MEDS: (Budesonide/Formoterol Fumarate (Symbicort 80-4.5 Mcg Inhaler) INH SCH ×2 (08:02→20:27)
[2019-03-31] MEDS: DEXTROSE 4 GM TAB.CHEW PO PRN ×2 (08:10→16:57)
[2019-03-31] MEDS: SODIUM CHLORIDE FLUSH 10ML SYR IVF SCH ×2 (08:12→20:27)
[2019-03-31] MEDS ORDERED: CLOPIDOGREL 75 MG TABLET PO SCH (09:00)
[2019-03-31] MEDS: D5%-0.9% NACL 1,000 ML IV SCH (09:20)
[2019-03-31] MEDS ORDERED: DIPHENHYDRAMINE 25 MG CAPSULE PO ONE (12:30)
[2019-03-31 13:23] VITALS: BP 99/54
[2019-03-31] MEDS: CEFTRIAXONE PMX 2GM/50ML 50 ML IV SCH (14:15)
[2019-03-31 19:58] VITALS: BP 128/73
[2019-03-31] MEDS: ATORVASTATIN 80 MG TABLET PO SCH (20:27)
[2019-03-31 20:30] VITALS: BP 95/52
[2019-03-31] MEDS ORDERED: ZOLPIDEM 5MG TABLET PO SCH (21:00)
[2019-03-31 22:12] VITALS: BP 109/63
[2019-04-01] MEDS: METRONIDAZOLE PMX 500MG/100ML 100 ML IV SCH ×2 (00:21→06:08)
[2019-04-01 02:28] VITALS: BP 111/83
[2019-04-01 06:02] LABS: BASOPHILS # (AUTO) 0.04 x10^3/uL (0-0.1); BASOPHILS % (AUTO) 1 % (0-1); EOSINOPHILS # (AUTO) 0.16 x10^3/uL (0-0.4); EOSINOPHILS % (AUTO) 3 % (1-7); LYMPHOCYTES # (AUTO) 1.43 x10^3/uL (1-3.4); LYMPHOCYTES % (AUTO) 22 % (22-44); MD NO; MEAN CORPUSCULAR HEMOGLOBIN 31.9 pg (27.0-34.8); MEAN CORPUSCULAR HGB CONC 33.2 g/dL (32.4-35.8); MONOCYTES # (AUTO) 0.65 x10^3/uL (0.2-0.8); MONOCYTES % (AUTO) 10 % (2-9); NEUTROPHILS # (AUTO) 4.11 x10^3/uL (1.8-6.8); NEUTROPHILS % (AUTO) 64 % (42-75); PLATELET COUNT 221 x10^3/uL (130-400); RED BLOOD COUNT 2.61 x10^6/uL (3.82-5.3); RED CELL DISTRIBUTION WIDTH 18.1 % (9.6-15.2)
[2019-04-01] MEDS: D5%-0.9% NACL 1,000 ML IV SCH (06:09)
[2019-04-01 06:12] LABS: CHLORIDE 104 mmol/L (98-107)
[2019-04-01 06:19] LABS: ALANINE AMINOTRANSFERASE 15 U/L (12-78); ALBUMIN 2.5 g/dL (3.4-5.0); ALKALINE PHOSPHATASE 65 U/L (45-117); ANION GAP 12 mmol/L (5-15); BILIRUBIN,TOTAL 0.5 mg/dL (0.2-1.0); CALCIUM 7.8 mg/dL (8.5-10.1); CREATININE 7.58 mg/dL (0.55-1.02)
[2019-04-01 07:33] VITALS: BP 98/51
[2019-04-01] MEDS: SEVELAMER CARBONATE 800MG TAB PO SCH ×2 (08:14→13:46)
[2019-04-01] MEDS: SERTRALINE 50MG TABLET PO SCH (08:14)
[2019-04-01] MEDS: CARVEDILOL 6.25 MG TABLET PO SCH (08:14)
[2019-04-01] MEDS: SODIUM CHLORIDE FLUSH 10ML SYR IVF SCH (08:15)
[2019-04-01] MEDS: PANTOPROZOLE 40MG TABLET PO SCH ×2 (08:15→16:36)
[2019-04-01] MEDS: (Budesonide/Formoterol Fumarate (Symbicort 80-4.5 Mcg Inhaler) INH SCH (08:15)
[2019-04-01] MEDS ORDERED: CEFDINIR 300 MG CAPSULE PO SCH (09:30)
[2019-04-01] MEDS ORDERED: ARANESP 100 MCG/ML **ESRD SQ SCH (11:00)
[2019-04-01] MEDS ORDERED: metroNIDAZOLE 500 MG TABLET PO SCH (12:00)
[2019-04-01] MEDS: GABAPENTIN 100 MG CAPSULE PO SCH ×2 (13:45→16:36)
[2019-04-01] MEDS ORDERED: CEFD300C37 PO (14:25)
[2019-04-01] MEDS ORDERED: METR500T PO (14:25)
== END 2019-04-01 17:00 | disposition home or self-care (01) | DRG 377 ==
LOC: ED 10:52 → EDIP 12:59 → 4WST 15:49 → DCLOUNGE 04-01 16:45
PROVIDERS: ADMIT Family Medicine; ATTEND Family Medicine
PROC: 5A1D70Z Performance of Urinary Filtration, Intermittent, Less than 6 Hours Per Day (ICD-10-PCS; principal; 2019-04-01)
DX: K57.33 Diverticulitis of large intestine without perforation or abscess with bleeding (principal); N18.6 End stage renal disease; J81.1 Chronic pulmonary edema; I50.22 Chronic systolic (congestive) heart failure; I13.2 Hypertensive heart and chronic kidney disease with heart failure and with stage 5 chronic kidney disease, or end stage renal disease; Z68.41 Body mass index [BMI] 40.0-44.9, adult; E66.01 Morbid (severe) obesity due to excess calories; E78.5 Hyperlipidemia, unspecified; D63.1 Anemia in chronic kidney disease; E87.6 Hypokalemia; I25.10 Atherosclerotic heart disease of native coronary artery without angina pectoris; I48.91 Unspecified atrial fibrillation; J44.9 Chronic obstructive pulmonary disease, unspecified; Z96.653 Presence of artificial knee joint, bilateral; K21.9 Gastro-esophageal reflux disease without esophagitis; Z22.1 Carrier of other intestinal infectious diseases; Z79.01 Long term (current) use of anticoagulants; Z79.4 Long term (current) use of insulin; Z82.49 Family history of ischemic heart disease and other diseases of the circulatory system; Z86.73 Personal history of transient ischemic attack (TIA), and cerebral infarction without residual deficits; Z87.19 Personal history of other diseases of the digestive system; Z87.891 Personal history of nicotine dependence; Z90.711 Acquired absence of uterus with remaining cervical stump; Z95.1 Presence of aortocoronary bypass graft; Z99.2 Dependence on renal dialysis; Z90.49 Acquired absence of other specified parts of digestive tract; Z98.84 Bariatric surgery status; Z80.51 Family history of malignant neoplasm of kidney; E11.649 Type 2 diabetes mellitus with hypoglycemia without coma; E11.22 Type 2 diabetes mellitus with diabetic chronic kidney disease; Z80.52 Family history of malignant neoplasm of bladder; K60.4 Rectal fistula
CPT/HCPCS: 36415; 70450; 71045; 74177; 80048; 80053; 80061; 82962; 83036; 83690; 83735; 84100; 85014; 85018; 85025; 85610; 87324; 87493; 90935; 93880; 96374; 96375; G0378; J0696; J0882; J3480; J7042; Q9967; J1200; J7040; Q0163

== ENCOUNTER 2019-04-26 09:39 | Outpatient (CLI) | payer MEDICARE ==
[~2019-04-26 09:39] MED LIST changes: +CEFD300C37 PO
[2019-04-26] MEDS ORDERED: CYCL-259 PO (10:24)
[2019-04-26] MEDS ORDERED: TRAZ50TA66 PO (10:24)
[2019-04-26] MEDS ORDERED: LACT1CAP64 PO (10:24)
[2019-04-26 10:45] LABS: BASOPHILS # (AUTO) 0.08 x10^3/uL (0-0.1); BASOPHILS % (AUTO) 1 % (0-1); EOSINOPHILS # (AUTO) 0.03 x10^3/uL (0-0.4); EOSINOPHILS % (AUTO) 0 % (1-7); LYMPHOCYTES # (AUTO) 0.48 x10^3/uL (1-3.4); LYMPHOCYTES % (AUTO) 5 % (22-44); MD NO; MEAN CORPUSCULAR HEMOGLOBIN 31.6 pg (27.0-34.8); MEAN CORPUSCULAR HGB CONC 32.4 g/dL (32.4-35.8); MEAN CORPUSCULAR VOLUME 97.4 fL (80-100); MEAN PLATELET VOLUME 7.4 fL (7.4-10.4); MONOCYTES # (AUTO) 0.82 x10^3/uL (0.2-0.8); MONOCYTES % (AUTO) 8 % (2-9); NEUTROPHILS # (AUTO) 9.19 x10^3/uL (1.8-6.8); NEUTROPHILS % (AUTO) 87 % (42-75); PLATELET COUNT 279 x10^3/uL (130-400); RED BLOOD COUNT 3.83 x10^6/uL (3.82-5.3); RED CELL DISTRIBUTION WIDTH 16.7 % (9.6-15.2)
[2019-04-26 10:56] LABS: ALBUMIN 3.2 g/dL (3.4-5.0); ANION GAP 16 mmol/L (5-15); CALCIUM 8.6 mg/dL (8.5-10.1); CHLORIDE 97 mmol/L (98-107)
[2019-04-26 10:59] LABS: INTERNATIONAL NORMALIZED RATIO 0.92 (0.93-1.1); PROTHROMBIN TIME 9.7 Seconds (9.6-11.5)
[2019-04-26 11:00] LABS: ALANINE AMINOTRANSFERASE 20 U/L (12-78); ALKALINE PHOSPHATASE 83 U/L (45-117); BILIRUBIN,TOTAL 0.8 mg/dL (0.2-1.0); CREATININE 6.27 mg/dL (0.55-1.02); TOTAL PROTEIN 7.4 g/dL (6.4-8.2)
[2019-05-13] MEDS ORDERED: CIPR500T87 PO (10:13)
[2019-05-13] MEDS ORDERED: OXYC-302 PO (10:13)
[2019-05-13] MEDS ORDERED: METR500T PO (10:14)
== END 2019-04-26 23:59 | disposition home or self-care (01) ==
LOC: STAR 09:39
PROVIDERS: ATTEND Colon & Rectal Surgery
DX: Z01.818 Encounter for other preprocedural examination (principal)
CPT/HCPCS: 36415; 80053; 85025; 85610; 85730; 93005

== ENCOUNTER 2019-05-04 07:30 | Outpatient (CLI) | payer MEDICARE ==
[~2019-05-04 07:30] MED LIST changes: +LACT1CAP64 PO
[2019-05-04] MEDS ORDERED: REGADENOSON 0.4 MG/5 ML SYRINGE ONE (15:38)
[2019-05-13] MEDS ORDERED: OXYC-302 PO (10:13)
[2019-05-13] MEDS ORDERED: CIPR500T87 PO (10:13)
[2019-05-13] MEDS ORDERED: METR500T PO (10:14)
== END 2019-05-04 23:59 | disposition home or self-care (01) ==
LOC: CFH 07:30
PROVIDERS: ATTEND Internal Medicine Cardiovascular Disease
DX: Z01.810 Encounter for preprocedural cardiovascular examination (principal); I35.0 Nonrheumatic aortic (valve) stenosis; I48.92 Unspecified atrial flutter
CPT/HCPCS: 78452; 93017; A9502; J2785

== ENCOUNTER 2019-08-11 08:26 | Outpatient (CLI) | payer MEDICARE ==
[~2019-08-11 08:26] MED LIST changes: +CIPR500T87 PO; +OXYC-302 PO
== END 2019-08-11 23:59 | disposition home or self-care (01) ==
LOC: RAD 08:26
PROVIDERS: ATTEND Colon & Rectal Surgery
DX: K57.30 Diverticulosis of large intestine without perforation or abscess without bleeding (principal); Z93.2 Ileostomy status
CPT/HCPCS: 74270

== ENCOUNTER → 2019-09-17 | Outpatient (CLI) | payer MEDICARE | END | disposition home or self-care (01) | LOC: CFH 08:51 | PROVIDERS: ATTEND Internal Medicine Cardiovascular Disease | DX: Z12.31 Encounter for screening mammogram for malignant neoplasm of breast (principal); Z13.820 Encounter for screening for osteoporosis; I08.3 Combined rheumatic disorders of mitral, aortic and tricuspid valves; N95.9 Unspecified menopausal and perimenopausal disorder; I10 Essential (primary) hypertension | CPT/HCPCS: 77080; 93306; 77067 ==

== ENCOUNTER 2019-10-14 09:46 | Emergency (ER) | payer MEDICARE ==
[~2019-10-14] VITALS: Ht 149.9 cm; Wt 83.2 kg
--- NOTE | 2019-10-14 10:05 | NUR ---
PT WALKED BACK FROM TRIAGE WITH CHIEF COMPLAINT OF COUGH, SOB, FEELING POOR SINCE YESTERDAY.
--- NOTE | 2019-10-14 10:24 | NUR ---
Dali Montilla at bedside for evaluation.
[2019-10-14 10:50] LABS: BASOPHILS # (AUTO) 0.01 x10^3/uL (0-0.1); BASOPHILS % (AUTO) 0 % (0-1); EOSINOPHILS # (AUTO) 0.01 x10^3/uL (0-0.4); EOSINOPHILS % (AUTO) 0 % (1-7); LYMPHOCYTES # (AUTO) 0.54 x10^3/uL (1-3.4); LYMPHOCYTES % (AUTO) 13 % (22-44); MD NO; MEAN CORPUSCULAR HEMOGLOBIN 32.3 pg (27.0-34.8); MEAN CORPUSCULAR HGB CONC 33.2 g/dL (32.4-35.8); MEAN CORPUSCULAR VOLUME 97.5 fL (80-100); MONOCYTES # (AUTO) 0.43 x10^3/uL (0.2-0.8); MONOCYTES % (AUTO) 10 % (2-9); NEUTROPHILS % (AUTO) 77 % (42-75); PLATELET COUNT 258 x10^3/uL (130-400); RED BLOOD COUNT 3.73 x10^6/uL (3.82-5.3); RED CELL DISTRIBUTION WIDTH 14.2 % (9.6-15.2)
[2019-10-14 11:02] LABS: ALBUMIN 3.6 g/dL (3.4-5.0); ANION GAP 12 mmol/L (5-15); CALCIUM 9.7 mg/dL (8.5-10.1); CHLORIDE 94 mmol/L (98-107)
[2019-10-14 11:07] LABS: ALANINE AMINOTRANSFERASE 40 U/L (12-78); ALKALINE PHOSPHATASE 104 U/L (45-117); BILIRUBIN,TOTAL 0.6 mg/dL (0.2-1.0); CREATININE 3.28 mg/dL (0.55-1.02); TOTAL PROTEIN 8.6 g/dL (6.4-8.2)
--- NOTE | 2019-10-14 11:28 | NUR ---
Pt resting in bed, call light in reach.
--- NOTE | 2019-10-14 12:34 | NUR ---
pt resting in bed.
[2019-10-14 12:54] LABS: TROPONIN I 0.057 ng/mL (0.000-0.045)
--- NOTE | 2019-10-14 13:45 | NUR ---
DC INSTRUCTIONS REVIEWED
[2019-10-14 13:46] VITALS: BP 102/61
== END 2019-10-14 14:00 | disposition home or self-care (01) ==
LOC: ED 11:38
DX: I13.2 Hypertensive heart and chronic kidney disease with heart failure and with stage 5 chronic kidney disease, or end stage renal disease (principal); I50.9 Heart failure, unspecified; N18.5 Chronic kidney disease, stage 5; E11.22 Type 2 diabetes mellitus with diabetic chronic kidney disease; R94.31 Abnormal electrocardiogram [ECG] [EKG]; R06.00 Dyspnea, unspecified; Z20.828 Contact with and (suspected) exposure to other viral communicable diseases; Z99.2 Dependence on renal dialysis; I25.2 Old myocardial infarction; Z90.89 Acquired absence of other organs; Z95.1 Presence of aortocoronary bypass graft; Z90.710 Acquired absence of both cervix and uterus; Z87.891 Personal history of nicotine dependence
CPT/HCPCS: 36415; 71045; 80053; 83605; 83880; 84484; 85025; 87040; 93005; 99285; U0001